=== PATIENT | male | born 1990 | race Caucasian/White ===

== ENCOUNTER → 2016-12-13 10:36 | Day surgery (SDC) | payer BC, MEDICARE, MEDICAID ==
[~2016-12-13 10:36] MED LIST: Buffered Lidocaine 1% SYR 3ML* 3 ML/SYR SYRINGE INTRADERM ONE; Dexamethasone TAB* 4 MG ONE; Dexamethasone TAB* 4 MG PO ONE; Famotidine IV* 10 MG/ML 2 ML (20 mg) IV ONE; Famotidine IV* 10 MG/ML 2 ML (20 mg) ONE; KETAMINE HCL* 50 MG/ML 10 ML VIAL ONE; Levalbuterol 0.63MG/3ML NEB INH ONE; Levalbuterol 1.25MG/0.5ML NEB ONE; Lidocaine 2% PF * 5 ML VIAL ONE; Midazolam* 1 MG/ML 10 ML VIAL (10 MG) ONE; PROCHLORPERAZINE INJ 5 MG/ML 2 ML VIAL IV PRN; Propofol* 10 MG/ML 20 ML BTL IV PUSH ONE; cefTRIAXone(*) 2 GM ADDV.VIAL IVPB ONE; fentaNYL* 50 MCG/ML 2 ML VIAL (100 MCG VIAL) IV PRN; fentaNYL* 50 MCG/ML 2 ML VIAL (100 MCG VIAL) ONE; oxyCODONE/Acetamin 5/325 MG* TAB PO PRN
[2016-12-13 16:18] VITALS: BP 163/67
--- NOTE | 2016-12-14 13:07 | OP ---
DATE OF OPERATION: 12/13/16 - SDS DATE OF : [birth year] - AGE: 26 years, Male. SURGEON: Jarocho Omalley MD ANESTHESIOLOGIST: Dr. Coppola. ANESTHESIA: Intravenous sedation. PRE-OP DIAGNOSIS: Left renal calculus. POST-OP DIAGNOSIS: Left renal calculus. OPERATIVE PROCEDURE: Cystoscopy, left stent removal. COMPLICATIONS: None. INDICATIONS: Arian Ackerman is a 26-year-old gentleman who is morbidly obese and had an obstructing calculus in the left proximal ureter, which had been manipulated into the left kidney at the time of stent insertion. He underwent laser fragmentation and stent change in [place] and is now being brought in for stent removal. CONDITION: Postoperative Condition: Stable. DESCRIPTION OF PROCEDURE: After induction of intravenous sedation, the patient was placed in dorsal lithotomy position. Sequential compression devices were in place and functioning. Initial cystoscopy revealed mild stricture at the meatus. The remainder of the urethra was unremarkable. The bladder was examined. The stent was seen exiting from the left orifice and was removed intact without difficulty. The bladder was emptied. The patient tolerated the procedure satisfactorily and was transferred back to the recovery area in stable condition. [id number]/CPS #: [id number] MTDD
== END | disposition home or self-care (01) ==
LOC: OR 10:36
PROVIDERS: ATTEND Urology
DX: N20.0 Calculus of kidney (principal); Z72.0 Tobacco use; E66.01 Morbid (severe) obesity due to excess calories
CPT/HCPCS: A9270-GY; J0696; J2250; J2704; J3010; J8540

== ENCOUNTER 2017-12-27 13:34 | Emergency (ER) | payer BC, MEDICARE, MEDICAID ==
[2017-12-27 13:56] VITALS: BP 129/74
--- NOTE | 2017-12-27 13:58 | UC ---
Back Pain HPI - HPI Summary HPI Summary: Pt presents with low back pain. 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 Yesterday he was sitting a stool and fell asleep - he woke up and felt himself falling and fell onto his left side and lower back. Did not hit his head. Denies numbness, tingling, dizziness, headache, or loss of bowel/bladder function. - History of Current Complaint Chief Complaint: UCBackPain Stated Complaint: BACK INJURY Time Seen by Provider: 12/27/17 13:57 Hx Obtained From: Patient Onset/Duration: Sudden Onset Timing: Constant Severity Initially: Moderate Severity Currently: Moderate Pain Intensity: 8 Pain Scale Used: 0-10 Numeric - Allergies/Home Medications Allergies/Adverse Reactions: Allergies Allergy/AdvReac Type Severity Reaction Status Date / Time No Known Allergies Allergy Verified 12/27/17 13:54 PMH/Surg Hx/FS Hx/Imm Hx Previously Healthy: Yes - Surgical History Surgical History: Yes Surgery Procedure, Year, and Place: [id number]. kidney stone removed in [place] - Family History Known Family History: Positive: Unknown - Social History Occupation: Employed Full-time Lives: With Family Alcohol Use: None Alcohol Amount: x3 Substance Use Type: None Smoking Status (MU): Light Every Day Tobacco Smoker Amount Used/How Often: 1/2 PPD Household Exposure Type: Cigarettes Review of Systems Constitutional: Negative Skin: Negative Respiratory: Negative Cardiovascular: Negative Gastrointestinal: Negative Genitourinary: Negative Neurovascular: Negative Musculoskeletal: Other: - LBP Neurological: Negative Psychological: Negative All Other Systems Reviewed And Are Negative: Yes Physical Exam Triage Information Reviewed: Yes Appearance: No Pain Distress, Obese Vital Signs: Initial Vital Signs Temp 98.4 F 12/27/17 13:49 Pulse 90 12/27/17 13:49 Resp 16 12/27/17 13:49 BP 129/74 12/27/17 13:49 Pulse Ox 93 12/27/17 13:49 Vital Signs Reviewed: Yes Neck: Positive: Supple, Nontender, No Lymphadenopathy Respiratory: Positive: Lungs clear, Normal breath sounds, No respiratory distress Cardiovascular: Positive: RRR, No Murmur, Pulses Normal Musculoskeletal: Positive: Strength Intact - B/L LEs, ROM Intact - B/L LEs and spine flexion, Other: - TTP over left lumbar paraspinal muscles. Positive SLR raise on left Neurological: Positive: Fatigued Psychological: Positive: Age Appropriate Behavior Skin: Negative: rashes, significant lesion(s) Back Pain Course/Dx - Course Course Of Treatment: Suspect low back strain vs spasm. Will try him with low back exercises, flexeril, and ibuprofen prn - Differential Dx/Diagnosis Provider Diagnoses: Low back pain Discharge - Discharge Plan Condition: Stable Disposition: HOME Prescriptions: Cyclobenzaprine TAB* [Flexeril 10 MG TAB*] 10 mg PO BEDTIME PRN #7 tab PRN Reason: Pain Ibuprofen TAB* [Motrin TAB* 800 MG] 800 mg PO Q6H PRN #40 tab PRN Reason: Pain Patient Education Materials: Lower Back Exercises (ED) Forms: *Work Release Referrals: Jose Juan Oh MD [Primary Care Provider] - Additional Instructions: If you develop a fever, shortness of breath, chest pain, new or worsening symptoms - please call your PCP or go to the ED.
== END 2017-12-27 14:17 | disposition home or self-care (01) ==
LOC: UCEAST 13:34
DX: M54.5 Low back pain (principal); Z87.442 Personal history of urinary calculi; F17.210 Nicotine dependence, cigarettes, uncomplicated
CPT/HCPCS: 99212; G0463

== ENCOUNTER 2018-03-15 11:42 | Inpatient (IN) | payer BC, MEDICAID ==
[2018-03-15 15:45] LABS: ABS Basophils 0.1 10^3/ul (0-0.2); ABS Eosinophils 0.2 10^3/ul (0-0.6); ABS Lymphocytes 1.4 10^3/ul (1.0-4.8); ABS Neutrophils 8.2 10^3/ul (1.5-7.7); ABS Nucleated RBC 0 10^3/ul; Eosinophil % 2.2 % (0-6); Hematocrit 47 % (42-52); Hemoglobin 15.1 g/dl (14.0-18.0); Lymphocyte % 13.2 % (25-47); Mean Corpuscular HGB Conc 32 g/dl (31-36); Mean Corpuscular Hemoglobin 27 pg (27-31); Mean Corpuscular Volume 84 fL (80-94); Nucleated Red Blood Cells % 0; Platelet Count 201 10^3/ul (150-450); Red Blood Count 5.56 10^6/ul (4.0-5.4); Red Cell Distribution Width 17 % (10.5-15); White Blood Count 10.9 10^3/ul (3.5-10.8)
--- NOTE | 2018-03-15 15:57 | RAD ---
HISTORY: Edema COMPARISONS: None VIEWS: 2: frontal portable view of the chest at 3:30 PM FINDINGS: LINES AND TUBES: None. CARDIOMEDIASTINAL SILHOUETTE: The cardiomediastinal silhouette is normal for portable technique. PLEURA: The costophrenic angles are sharp. No pleural abnormalities are noted. LUNG PARENCHYMA: There is prominence of the central pulmonary vasculature. ABDOMEN: The upper abdomen is clear. There is no subphrenic gas. BONES AND SOFT TISSUES: No bone or soft tissue abnormalities are noted. IMPRESSION: PULMONARY VASCULAR CONGESTION.
[2018-03-15 16:10] LABS: EGFR Non-African American 143.7 (>60)
--- NOTE | 2018-03-15 16:36 | RAD ---
INDICATION: Scrotal swelling COMPARISON: None TECHNIQUE: Duplex interrogation of the scrotum was performed. This is a mildly examination. FINDINGS: Testicles: The testicles are Normal in size and echogenicity. There is no evidence of testicular mass. There is symmetric flow on Doppler interrogation. There is no evidence of torsion.. The right testis measures 5.1 x 3.1 x 3.4 cm and the left 5.4 x 3.1 x 3.8 cm. There is symmetric flow on Doppler interrogation. Epididymides: There is no evidence of an epididymal mass. The epididymides are normal in size. There is symmetric flow on Doppler interrogation. The right epididymal head measures 1.4 x 0.7 cm and the left 1.5 x 2.2 cm. Hydroceles: None. Varicoceles: None. Other: There is diffuse scrotal wall thickening/edema. IMPRESSION: LIMITED EXAMINATION DUE TO BODY HABITUS. DIFFUSE SCROTAL EDEMA. NO TESTICULAR MASS OR TORSION
[2018-03-15 16:56] LABS: Urine Appearance Clear; Urine Blood Negative (Negative); Urine Color Yellow; Urine Ketones Negative (Negative); Urine Protein Negative (Negative); Urine Specific Gravity 1.025 (1.010-1.030); Urine Urobilinogen Negative (Negative)
[2018-03-15] MEDS ORDERED: Furosemide IV* 10 MG/ML VIAL (40 MG) IV SLOW PU ONE (17:06)
[2018-03-15] MEDS ORDERED: Furosemide IV* 10 MG/ML VIAL (40 MG) ONE ×2 (17:18→19:51)
--- NOTE | 2018-03-15 18:53 | ED ---
Garland Burnett Jennifer, scribed for Moe Kraus MD on 03/15/18 at 1611 . GI/ HPI - HPI Summary HPI Summary: The patient is a 27 year old male who presents with swollen scrotum for one month. The patient reports he has been unable to urinate in the toilet and his ball sack hangs down to his knees when he walks. He has been unable to sustain an erection for one year. He additionally states his legs have been swollen for one year. Patient denies trouble breathing. - History of Current Complaint Chief Complaint: EDUrogenitalProblems Time Seen by Provider: 03/15/18 13:55 Stated Complaint: TESTICULAR ISSUE Hx Obtained From: Patient Onset/Duration: Started Weeks Ago - 4 weeks Timing: Constant Severity: Mild Current Severity: None Pain Intensity: 0 Location of Pain: None Additional Locations for Males: Penis - cannot sustain erection for one year, Scrotum - edema Associated Signs and Symptoms: Positive: Other: - swollen ballsack, bilateral leg edema. NEG: troubel breathing Aggravating Factor(s): Nothing Alleviating Factor(s): Nothing - Allergy/Home Medications Allergies/Adverse Reactions: Allergies Allergy/AdvReac Type Severity Reaction Status Date / Time No Known Allergies Allergy Verified 03/15/18 11:47 Home Medications: Home Medications NK [No Home Medications Reported] 03/15/18 [History Confirmed 03/15/18] PMH/Surg Hx/FS Hx/Imm Hx Endocrine/Hematology History: Denies: Hx Diabetes Cardiovascular History: Denies: Hx Hypertension Respiratory History: Reports: Hx Sleep Apnea - doesn't use machine History: Reports: Hx Kidney Stones - removed in [place] Denies: Hx Dialysis, Hx Renal Disease Musculoskeletal History: Reports: Hx Tendonitis - RIGHT WRIST Denies: Hx Scoliosis Sensory History: Denies: Hx Contacts or Glasses, Hx Hearing Aid Opthamlomology History: Denies: Hx Contacts or Glasses Neurological History: Denies: Hx Headaches, Other Neuro Impairments/Disorders - Surgical History Surgery Procedure, Year, and Place: [id number]. kidney stone removed in [place] Hx Anesthesia Reactions: No Infectious Disease History: No Infectious Disease History: Denies: Traveled Outside the [place] in Last 30 Days - Family History Known Family History: Negative: Respiratory Disease - Social History Alcohol Use: None Alcohol Amount: x3 Substance Use Type: Reports: None Smoking Status (MU): Light Every Day Tobacco Smoker Amount Used/How Often: 1/2 PPD Review of Systems Negative: Fever, Chills Negative: Erythema Negative: Sore Throat Negative: Chest Pain Negative: Shortness Of Breath, Cough Negative: Abdominal Pain, Vomiting, Nausea Negative: dysuria, hematuria Positive: Edema - ballsack, legs. Negative: Myalgia Negative: Rash Neurological: Negative - Dizziness All Other Systems Reviewed And Are Negative: Yes Physical Exam - Summary Physical Exam Summary: Constitutional: Morbidly obese. Alert. (-) Distressed Skin: Warm, Dry HENT: Normocephalic; Atraumatic Eyes: Conjunctiva normal Neck: Musculoskeletal ROM normal neck. (-) JVD, (-) Stridor, (-) Tracheal deviation Cardio: Rhythm regular, rate normal, Heart sounds normal; Intact distal pulses; The pedal pulses are 2+ and symmetric. Radial pulses are 2+ and symmetric. (-) Murmur Pulmonary/Chest wall: Effort normal. (-) Respiratory distress, (-) Wheezes, (-) Rales Abd: Soft, (-) Tenderness, (-) Distension, (-) Guarding, (-) Rebound Musculoskeletal: 2+ pitting edema up to the level of his scrotum. No necrosis, no testicular tenderness, no crepitus. I do not suspect brendon's gangrene. Lymph: (-) Cervical adenopathy Neuro: Alert, Oriented x3 Psych: Mood and affect Normal Triage Information Reviewed: Yes Vital Signs On Initial Exam: Initial Vitals Temp Pulse Resp BP Pulse Ox 98.5 F 91 20 109/47 92 03/15/18 11:47 03/15/18 11:47 03/15/18 11:47 03/15/18 11:47 03/15/18 11:47 Vital Signs Reviewed: Yes Diagnostics - Vital Signs Vital Signs Temp Pulse Resp BP Pulse Ox 03/15/18 13:45 97.5 F 89 14 130/70 92 03/15/18 11:47 98.5 F 91 20 109/47 92 - Laboratory Result Diagrams: 03/15/18 15:36 03/15/18 15:36 Lab Statement: Any lab studies that have been ordered have been reviewed, and results considered in the medical decision making process. - Radiology CXR Xray Interpretation: Positive (See Comments) - PULMONARY VASCULAR CONGESTION. Dr. Kraus has reviewed this report. Radiology Interpretation Completed By: Radiologist - EKG 1559 Cardiac Rate: NL EKG Rhythm: Sinus Rhythm - 87 BPM EKG Interpretation: no STEMI - Additional Comments Diagnostic Additional Comments: Testicular US. Interpreted by a radiologist. IMPRESSION: LIMITED EXAMINATION DUE TO BODY HABITUS. DIFFUSE SCROTAL EDEMA. NO TESTICULAR MASS OR TORSION. Dr. Kraus has reviewed this report. GIGU Course/Dx - Course Course Of Treatment: The patient is a 27 year old male who presents with swollen scrotum for one month. Bloodwork was obtained. CXR, EKG obtained. US testicles obtained. The patient is diagnosed with Anasarca, Lower extremity edema, and Peripheral edema. The patient is admitted by Dr. Gomez for diuresis. - Diagnoses Provider Diagnoses: Anasarca, Lower extremity edema, Peripheral edema - Physician Notifications Discussed Care Of Patient With: Jarret Gomez Time Discussed With Above Provider: 17:21 Instructed by Provider To: Admit As Inpatient Discharge - Sign-Out/Discharge Documenting (check all that apply): Discharge/Admit/Transfer - Discharge Plan Condition: Good Disposition: ADMITTED TO [facility] Referrals: No Primary Care Phys,NOPCP [Primary Care Provider] - The documentation as recorded by the Garland howell Jennifer accurately reflects the service I personally performed and the decisions made by , Moe Kraus MD.
[2018-03-15] MEDS ORDERED: Furosemide IV* 10 MG/ML VIAL (40 MG) IV ONE (19:34)
[2018-03-15] MEDS ORDERED: Albuterol 2.5 MG/3 ML NEB.SOL* (0.083%) INH PRN (19:41)
[2018-03-15] MEDS ORDERED: CMCS: Melatonin (NF) 3 MG TAB PO PRN (19:50)
[2018-03-15] MEDS ORDERED: Acetaminophen TAB* 325 MG PO PRN (19:51)
--- NOTE | 2018-03-15 21:10 | RAD ---
INDICATION: Pain and swelling. COMPARISON: None TECHNIQUE: Duplex interrogation of the Lowerextremity was performed. FINDINGS: Deep veins: The common femoral, great saphenous, profunda femoris, proximal, mid, and distal deep femoral, popliteal, posterior tibial, and peroneal veins were interrogated. There is normal compressibility, augmentation, and phasic in the visualized deep venous structures. Those structures not visualized include the femoral veins at the adductor canal and the tibial veins. These vessels were not seen due to body habitus. Superficial veins: There are no findings of superficial thrombophlebitis. Popliteal fossa:There is no evidence of a popliteal cyst. Soft tissues:There is dependent edema. IMPRESSION: LIMITED EXAMINATION. NO EVIDENCE OF DVT OF THE OBSERVABLE VESSELS
[2018-03-16] MEDS: Heparin VIAL(*) 5000 UNITS/ML VIAL (FIVE THOUSAND) SUBCUT SCH ×4 (00:06→21:50)
[2018-03-16] MEDS: cefTRIAXone(*) 1 GM in NS 0.9% 50 ML* 50 ML IVPB SCH ×2 (01:57→01:58)
--- NOTE | 2018-03-16 03:53 | HP ---
AMENDED REPORT NOW INCLUDES COSIGNER DESIGNATION - ESIGNED BEFORE ADJUSTMENTS ADMISSION HISTORY AND PHYSICAL: DATE OF ADMISSION: 03/15/18 ATTENDING PHYSICIAN: Dr. Deborah Pace.* (DICTATED BY BREANA BEAR NP) PRIMARY CARE PHYSICIAN: [facility]. HISTORY OF PRESENT ILLNESS: This is a 27-year-old male patient who reports a history over the last 2 weeks of increasing edema. The patient states over the past couple of months he has had some lower extremity edema bilaterally. He did go see one of the providers at the [facility] at his mother's request. The patient was supposed to be sent for lab work a couple of weeks ago, however, he did not go get his lab work. Over the past couple of days, the patient noticed that the edema increased up into his scrotum and also into his abdomen, and appears to be some generalized anasarca and no scrotal edema. The patient states he is still able to urinate. He denies any burning sensation. He denies any fever, fatigue or chills. No shortness of breath. No chest pain. No cough. No arthralgias or myalgias. He does have a sensation of fullness in the lower extremities and only pain in the scrotum if he wears a tighter clothing, but otherwise no further constitutional complaints. Evaluation in the emergency department was completed with testicular ultrasound. Ultrasound does not show any testicular torsion, does not show any abscess or fluid collection. It does show some scrotal thickening and edema. PAST MEDICAL HISTORY: Super Morbid Obesity, Kidney stones, MARIO. HOME MEDICATIONS: None. PAST SURGICAL HISTORY: Lithotripsy of kidney stones. ALLERGIES: No known drug allergies. SOCIAL HISTORY: The patient denies any illicit drug use. He is a half-pack a day tobacco user. Recreational alcohol only about 3 times a week. His mother is his health care proxy. REVIEW OF SYSTEMS: 10 point review negative except as noted in HPI. PHYSICAL EXAMINATION GENERAL: The patient is awake and alert, family at bedside, in no acute distress. VITAL SIGNS: Currently, blood pressure 130/70, heart rate 89, respiratory rate 14, O2 saturation 92% on room air with the temperature of 97.5. HEENT: The patient is atraumatic, normocephalic. PERRLA with nonicteric sclerae. NECK: Supple, nontender. No JVD noted. No thyromegaly appreciated. LUNGS: Diminished throughout, although it is very difficult to auscultate his lung sounds secondary to his body habitus, but does not appear to have any rhonchi or rales. CARDIOVASCULAR: S1, S2 present. Rate and rhythm are regular. No murmurs, gallops or rubs. ABDOMEN: Largely obese, unable to palpate any of his abdominal structures. He does have positive bowel sounds. No significant amount of edema. : He does have an intense amount of scrotal swelling and edema. It does not appear to have any cellulitic component or erythema. EXTREMITIES: Also, edema of the lower extremities. He does have distal pulses intact and he is ambulatory. NEUROLOGIC: He is grossly intact with no focal deficits. PSYCHIATRIC: He is cooperative and appropriate. DIAGNOSTIC STUDIES/LAB DATA: WBC is 10.9, RBC is 5.56, hemoglobin 15.5, hematocrit 47, platelets 201. Sodium 142, potassium 4.2, chloride 103, CO2 35, BUN 9, creatinine 0.66, GFR is 142.7, glucose 89, lactic acid 0.8, calcium 8.4. Bilirubin 0.60, AST 15, ALT 16, alk phos 52. Troponin is negative at 0.00. CRP is mildly elevated at 21.16. BNP is 28. Total protein 6.8, albumin 3.5, globulin 3.3, lipase 10, BNP is 28. Urinalysis shows no acute infective process. IMPRESSION: This is a 27-year-old male patient with the complaint of scrotal edema and also inability to have an erection for 1 year now. Has not had a urological workup up to this point. Also appears to have some generalized anasarca and some pulmonary vascular congestion on his chest x-ray. PLAN/RECOMMENDATIONS: The patient has been admitted to observation service. ADMISSION DIAGNOSES: 1. Anasarca: Etiology unclear, likely OHS with MARIO. Continue aggressive diuresis with lasix. and monitor I&O. Low sodium diet. 2. Scrotal Edema: We do not have Urology on board this evening. I feel that may be warranted to have a discussion with Urology tomorrow given the intense amount of swelling that he has. He is voiding on his own but my concern is that Urology should really make some recommendations here regarding additional care given the intense amount of the edema that he is exhibiting. In the meantime, he has gotten Lasix 40 mg, another 40 mg in the ER and another 40 mg in the morning. We will monitor his output and see if his swelling starts to improve. 3. Pulmonary Congestion: Pulse ox has been low with some tachypnea. Likely fluid from his anasarca. Should improve with lasix. continue to monitor respiratory status. May repeat chest xray. 4. Obesity Hypoventilation Syndrome with Concomitant MARIO: CO2 is slightly elevated with pulse ox around 90%. Patient needs sleep study as an outpatient. If no improvement with diuresis, will check overnight pulse oximetry. 5. Leukocytosis: Etiology unclear, check urine, may be early cellulitis. Will trial Ceftriaxone and await recommendations from Dr. [place]. The patient had testicular ultrasound earlier; however, with the increasing edema in his bilateral lower extremities, I feel it is warranted to do bilateral ultrasound of the lower extremities to rule out DVT as well. This will all be evaluated in the morning and again discussed with Urology if the patient needs further workup or can be discharged with outpatient followup. The rest of the patient's course will be determined by further diagnostics, labs and any other input from other providers as warranted during this admission. BREANA BEAR NP [id number]/CPS #: [id number] MTDD
[2018-03-16 06:33] LABS: EGFR Non-African American 146.3 (>60)
[2018-03-16 06:35] LABS: ABS Basophils 0.1 10^3/ul (0-0.2); ABS Eosinophils 0.2 10^3/ul (0-0.6); ABS Lymphocytes 1.5 10^3/ul (1.0-4.8); ABS Monocytes 0.8 10^3/ul (0-0.8); ABS Neutrophils 10.2 10^3/ul (1.5-7.7); ABS Nucleated RBC 0 10^3/ul; Eosinophil % 1.6 % (0-6); Hematocrit 47 % (42-52); Hemoglobin 15.5 g/dl (14.0-18.0); Lymphocyte % 11.7 % (25-47); Mean Corpuscular HGB Conc 33 g/dl (31-36); Mean Corpuscular Hemoglobin 27 pg (27-31); Mean Corpuscular Volume 84 fL (80-94); Mean Platelet Volume 7.4 um3 (7.4-10.4); Nucleated Red Blood Cells % 0.2; Platelet Count 200 10^3/ul (150-450); Red Blood Count 5.66 10^6/ul (4.0-5.4); Red Cell Distribution Width 18 % (10.5-15); White Blood Count 12.8 10^3/ul (3.5-10.8)
[2018-03-16] MEDS: Furosemide IV* 10 MG/ML VIAL (40 MG) IV SCH (08:22)
[2018-03-16] MEDS: Clindamycin 600 MG IVPREMIX(* 600 MG/50 ML SDV IV SCH ×2 (09:36→17:51)
--- NOTE | 2018-03-16 14:24 | RAD ---
CLINICAL HISTORY: Anasarca COMPARISON: May 28, 2018 TECHNIQUE: Multiple contiguous axial CT scans were obtained of the abdomen and pelvis, without intravenous contrast enhancement. Coronal and sagittal multiplanar reformations are submitted for review. Oral contrast was not administered. FINDINGS: The study is limited by the lack of intravenous contrast. This limits evaluation of the solid organs and vasculature. This study is also technically limited secondary patient body habitus. LUNG BASES: The lung bases are clear. LIVER: The liver is normal in shape, size, contour, and attenuation. BILE DUCTS: There is no intrahepatic or extrahepatic biliary dilatation. GALLBLADDER: The gallbladder is normal, without pericholecystic inflammatory change. PANCREAS: The pancreas is normal, without mass or ductal dilatation. SPLEEN: Normal in size and appearance. UPPER GI TRACT: Evaluation of the gastrointestinal tract is limited by incomplete gastric distention. The upper GI tract is unremarkable. SMALL BOWEL AND MESENTERY: The small bowel is normal in contour, course, and caliber. There is no obstruction or dilatation. COLON: The colon is normal in contour, course, caliber. There is no pericolonic inflammatory change. ADRENALS: Normal bilaterally. KIDNEYS: The kidneys are normal in shape, size, contour, and axis. There is no hydronephrosis or nephrolithiasis. BLADDER: The bladder is smooth in contour. PELVIC ORGANS: The prostate gland is normal. The seminal vesicles are symmetric. There is scrotal wall edema. AORTA: The aorta is normal. IVC: Unremarkable LYMPH NODES: There is no lymphadenopathy by size criteria. ABDOMINAL WALL: Evaluation is limited secondary to body habitus. BONES AND SOFT TISSUES: Unremarkable OTHER: None IMPRESSION: 1. LIMITED STUDY. 2. SCROTAL WALL EDEMA. 3. NO ACUTE NONCONTRAST CT PATHOLOGY OF THE VISUALIZED ABDOMEN AND PELVIS
--- NOTE | 2018-03-16 15:06 | PN ---
Subjective Date of Service: 03/16/18 Interval History: Patient seen and examined. Ambulatory, no complaints. Denies chest pain, no acute SOB. Patient denies dyspnea although he appears to have increased WOB with ambulation. Denies fever or chills. Edema with slight improvement. Objective Active Medications: Acetaminophen (Tylenol Tab*) 650 mg PO Q6H PRN PRN Reason: FEVER/HEADACHE Albuterol (Ventolin 2.5 Mg/3 Ml Neb.Nel*) 2.5 mg INH Q4H PRN PRN Reason: SOB/WHEEZING Furosemide (Lasix Iv*) 40 mg IV DAILY [facility] Last Admin: 03/16/18 08:22 Dose: 40 mg Heparin Sodium (Porcine) (Heparin Vial(*)) 5,000 units SUBCUT Q8HR [facility] Last Admin: 03/16/18 13:08 Dose: Not Given Clindamycin HCl/Dextrose (Cleocin 600 Mg Ivpremix(*) Sdv) 600 mg in 50 mls @ 100 mls/hr IV Q8H [facility] Last Admin: 03/16/18 09:36 Dose: 100 mls/hr Melatonin (Melatonin (Nf)) 3 mg PO BEDTIME PRN PRN Reason: INSOMNIA Vital Signs - 8 hr 03/16/18 03/16/18 03/16/18 07:05 08:12 12:14 Temperature 98.1 F 98.4 F Pulse Rate 89 92 Respiratory 26 18 18 Rate Blood Pressure 172/103 137/70 (mmHg) O2 Sat by Pulse 93 90 Oximetry 03/16/18 13:42 Temperature Pulse Rate 92 Respiratory 18 Rate Blood Pressure (mmHg) O2 Sat by Pulse 92 Oximetry Oxygen Devices in Use Now: None Appearance: Alert, NAD Eyes: No Scleral Icterus, PERRLA Ears/Nose/Mouth/Throat: NL Teeth, Lips, Gums, Mucous Membranes Moist Neck: NL Appearance and Movements; NL JVP, Trachea Midline Respiratory: Symmetrical Chest Expansion and Respiratory Effort, Clear to Auscultation, - - difficult to hear lung sounds at bases 2/2 body habitus Cardiovascular: NL Sounds; No Murmurs; No JVD, RRR Abdominal: NL Sounds; No Tenderness; No Distention - obese Lymphatic: No Cervical Adenopathy Extremities: - - moderate to severe bilateraly LE and scrotal edema Skin: - - right anterior lower lyle with scab, no exudate Neurological: Alert and Oriented x 3 Nutrition: Taking PO's Result Diagrams: 03/16/18 05:59 03/16/18 05:59 Diagnostic Imaging: Patient Name: NUZHAT HAYDEN Medical Record#: [id number] Ordering Physician: Moe Kraus MD Acct.#: [id number] : 1990 Age: 27 Sex: M Location: EMERGENCY DEPARTMENT Exam Date: 03/15/181522 ADM Status: DEP ER Order Information: CHEST AP PORTABLE Accession Number: [id number] CPT: 25329 HISTORY: Edema COMPARISONS: None VIEWS: 2: frontal portable view of the chest at 3:30 PM FINDINGS: LINES AND TUBES: None. CARDIOMEDIASTINAL SILHOUETTE: The cardiomediastinal silhouette is normal for portable technique. PLEURA: The costophrenic angles are sharp. No pleural abnormalities are noted. LUNG PARENCHYMA: There is prominence of the central pulmonary vasculature. ABDOMEN: The upper abdomen is clear. There is no subphrenic gas. BONES AND SOFT TISSUES: No bone or soft tissue abnormalities are noted. IMPRESSION: PULMONARY VASCULAR CONGESTION. <Electronically signed by Matt Mora MD in OV> 03/15/181552 Dictated By: Matt Mora MD Dictated Date/Time: 03/15/181552 Transcribed Date/Time: 03/15/181552 Copy to: TESTICULAR US: Patient Name: NUZHAT HAYDEN Medical Record#: [id number] Ordering Physician: Moe Kraus MD Acct.#: [id number] : 1990 Age: 27 Sex: M Location: EMERGENCY DEPARTMENT Exam Date: 03/15/181522 ADM Status: DEP ER Order Information: US TESTICULAR Accession Number: [id number] CPT: 67965 INDICATION: Scrotal swelling COMPARISON: None TECHNIQUE: Duplex interrogation of the scrotum was performed. This is a mildly examination. FINDINGS: Testicles: The testicles are Normal in size and echogenicity. There is no evidence of testicular mass. There is symmetric flow on Doppler interrogation. There is no evidence of torsion.. The right testis measures 5.1 x 3.1 x 3.4 cm and the left 5.4 x 3.1 x 3.8 cm. There is symmetric flow on Doppler interrogation. Epididymides: There is no evidence of an epididymal mass. The epididymides are normal in size. There is symmetric flow on Doppler interrogation. The right epididymal head measures 1.4 x 0.7 cm and the left 1.5 x 2.2 cm. Hydroceles: None. Varicoceles: None. Other: There is diffuse scrotal wall thickening/edema. IMPRESSION: LIMITED EXAMINATION DUE TO BODY HABITUS. DIFFUSE SCROTAL EDEMA. NO TESTICULAR MASS OR TORSION <Electronically signed by Ry Groves MD in OV> 03/15/18 1632 Dictated By: Ry Groves MD Dictated Date/Time: 03/15/18 1632 Transcribed Date/Time: 03/15/18 1631 Copy to: US DOPPLER BILAT LE: Patient Name: NUZHAT HAYDEN Medical Record#: [id number] Ordering Physician: Jessica Gustafson NP Acct.#: [id number] : 1990 Age: 27 Sex: M Location: EMERGENCY DEPARTMENT Exam Date: 03/15/182013 ADM Status: REG ER Order Information: VL LOWER EXT VEINS BILATERAL Accession Number: [id number] CPT: 74744 INDICATION: Pain and swelling. COMPARISON: None TECHNIQUE: Duplex interrogation of the Lower extremity was performed. FINDINGS: Deep veins: The common femoral, great saphenous, profunda femoris, proximal, mid , and distal deep femoral, popliteal, posterior tibial, and peroneal veins were interrogated. There is normal compressibility, augmentation, and phasic in the visualized deep venous structures. Those structures not visualized include the femoral veins at the adductor canal and the tibial veins. These vessels were not seen due to body habitus. Superficial veins: There are no findings of superficial thrombophlebitis. Popliteal fossa:There is no evidence of a popliteal cyst. Soft tissues:There is dependent edema. IMPRESSION: LIMITED EXAMINATION. NO EVIDENCE OF DVT OF THE OBSERVABLE VESSELS <Electronically signed by Ry Groves MD in OV> 03/15/182105 Dictated By: Ry Groves MD Dictated Date/Time: 03/15/182105 Transcribed Date/Time: 03/15/182048 Copy to: CT ABDOMEN AND PELVIS: Patient Name: NUZHAT HAYDEN Medical Record#: [id number] Ordering Physician: Jessica Gustafson NP Acct.#: [id number] : 1990 Age: 27 Sex: M Location: [address] [place] [address] MEDICAL/TELEMETRY Exam Date: 03/16/18 1331 ADM Status: ADM Stephan Order Information: CT ABD/PEL W/O Accession Number: [id number] CPT: 32649 CLINICAL HISTORY: Anasarca COMPARISON: May 28, 2018 TECHNIQUE: Multiple contiguous axial CT scans were obtained of the abdomen and pelvis, without intravenous contrast enhancement. Coronal and sagittal multiplanar reformations are submitted for review. Oral contrast was not administered. FINDINGS: The study is limited by the lack of intravenous contrast. This limits evaluation of the solid organs and vasculature. This study is also technically limited secondary patient body habitus. LUNG BASES: The lung bases are clear. LIVER: The liver is normal in shape, size, contour, and attenuation. BILE DUCTS: There is no intrahepatic or extrahepatic biliary dilatation. GALLBLADDER: The gallbladder is normal, without pericholecystic inflammatory change. PANCREAS: The pancreas is normal, without mass or ductal dilatation. SPLEEN: Normal in size and appearance. UPPER GI TRACT: Evaluation of the gastrointestinal tract is limited by incomplete gastric distention. The upper GI tract is unremarkable. SMALL BOWEL AND MESENTERY: The small bowel is normal in contour, course, and caliber. There is no obstruction or dilatation. COLON: The colon is normal in contour, course, caliber. There is no pericolonic inflammatory change. ADRENALS: Normal bilaterally. KIDNEYS: The kidneys are normal in shape, size, contour, and axis. There is no hydronephrosis or nephrolithiasis. BLADDER: The bladder is smooth in contour. PELVIC ORGANS: The prostate gland is normal. The seminal vesicles are symmetric. There is scrotal wall edema. AORTA: The aorta is normal. IVC: Unremarkable LYMPH NODES: There is no lymphadenopathy by size criteria. ABDOMINAL WALL: Evaluation is limited secondary to body habitus. BONES AND SOFT TISSUES: Unremarkable OTHER: None IMPRESSION: 1. LIMITED STUDY. 2. SCROTAL WALL EDEMA. 3. NO ACUTE NONCONTRAST CT PATHOLOGY OF THE VISUALIZED ABDOMEN AND PELVIS <Electronically signed by Matt Mora MD in OV> 03/16/18 1421 1 of 2 Assess/Plan/Problems-Billing Assessment: This is a 27 year old male that presented to ER with complaint of bilateral LE edema and scrotal edema that has been increasing for several weeks. - Patient Problems (1) Anasarca Code(s): R60.1 - GENERALIZED EDEMA SNOMED Code(s): 013977625 Comment: - Etiology unclear - Renal and liver function WNL - Likley 2/2 obesity hypoventilation syndrome - continue to diurese with lasix - Strict I&Os - CT as above, does not appear to be any obstructive masses, likely all r/t pressure/girth and OHS (2) Scrotal edema Code(s): N50.89 - OTHER SPECIFIED DISORDERS OF THE MALE GENITAL ORGANS SNOMED Code(s): 81107787 Comment: - 2/2 above - Consult with Dr. Birmingham who recommends CT scan abd/pelvis, elevation with a towel and diruresis (3) Leukocytosis Code(s): D72.829 - ELEVATED WHITE BLOOD CELL COUNT, UNSPECIFIED SNOMED Code(s) : 642969581 Comment: - UTI vx early cellulitis? - Remains afebrile but met 2 of 3 SIRS criteria (tachypnea and increased WBCs) - Had ceftriaxone last night, will trial clindamycin, monitor WBCs (4) Morbid obesity with BMI of 70 and over, adult Code(s): E66.01 - MORBID (SEVERE) OBESITY DUE TO EXCESS CALORIES; Z68.45 - BODY MASS INDEX (BMI) 70 OR GREATER, ADULT SNOMED Code(s): 609836840 Comment: - Discussed bariatric surgery with patient and will make referral - Nutrition consultation (5) Obesity hypoventilation syndrome Code(s): E66.2 - MORBID (SEVERE) OBESITY WITH ALVEOLAR HYPOVENTILATION SNOMED Code(s): 245778950 Comment: - Pulse ox dipped to 90% will awake and does appear to have increased work of breathing - Patient states hx of sleep apnea, not on CPAP - Stressed importance of follow up - Will get overnight pulse ox and make referral for pulmonology at discharge (6) DVT prophylaxis Code(s): PDV3418 - SNOMED Code(s): 303097635 Comment: - HSQ (7) Full code status Code(s): Z78.9 - OTHER SPECIFIED HEALTH STATUS SNOMED Code(s): 165076795 Status and Disposition: Remain inpatient.
--- NOTE | 2018-03-16 18:13 | CONS ---
CONSULTATION NOTE: DATE OF CONSULT: 03/16/18 LOCATION: Room #453. I was asked by Ms. Gustafson from the hospitalist service to see this 27-year-old white male because of scrotal wall edema. Mr. Ackerman is a morbidly obese white male who was previously seen in our office about 2 years ago because of renal calculus disease. At that time, he had an 8 mm ureteral calculus and required a ureteroscopy with good result. He has not had any recurrent renal calculi. For the last several months, he has noted progressive edema of his lower extremities and of the scrotum. This was asymptomatic, not associated with any pain or changes in his voiding. He was admitted yesterday because of increasing edema of the lower extremities and also was noted to have increasing edema in the scrotum. He did not report any scrotal pain or any voiding symptoms. He denies any past history of epididymitis or of any voiding symptoms. This condition has not been associated with any changes in his voiding, decreased urinary stream, hesitancy or hematuria. No urinary tract infections. No flank pain. No renal symptoms. Patient is presently being worked up for anasarca, and has been started on a diuretic. So far, there is no diagnosis for the cause of the anasarca. The patient is morbidly obese weighing more than 600 pounds. A consultation was obtained to rule out cellulitis associated with the scrotal wall edema. A scrotal ultrasound was obtained yesterday and it showed normal testes and diffuse thickening of the scrotal wall. The study was technically limited due to the scrotal wall edema, but no gross abscesses, collections, or gas noted in the scrotal wall. On examination today, he is a very morbidly obese male weighing more than 600 pounds. He has diffuse tense edema of both lower extremities. There are no signs of cellulitis in his lower extremities. There is also diffuse edema of the scrotal wall. There is no evidence of scrotal wall cellulitis or scrotal wall collections. Both testes feel normal without any testicular masses and no tenderness, no hydroceles, the epididymis feel normal bilaterally. No inguinal hernias. He is uncircumcised. There is a mild edema of the foreskin. The foreskin can be easily retracted and the urethral meatus looks normal. No penile lesions noted. Impression: Diffuse scrotal wall edema, without associated cellulitis, which is consistent with the edema of the rest of his lower body. The condition is secondary to the anasarca rather than to any specific pathology. Plan: Recommend scrotal elevation and avoiding abrasion of the scrotal wall to avoid any port entry for cellulitis. The treatment of his condition is the same treatment as for the anasarca for which he is being worked for. I recommended obtaining a CT of the abdomen and pelvis to rule out retroperitoneal pathology or lymphadenopathy that can explain his diffuse lower body edema. I will see him in follow up as needed. Thank you [id number]/[facility] #: [id number] KOKI
[2018-03-16] MEDS ORDERED: Furosemide IV* 10 MG/ML VIAL (40 MG) IV SLOW PU SCH (20:00)
[2018-03-17] MEDS: Clindamycin 600 MG IVPREMIX(* 600 MG/50 ML SDV IV SCH ×2 (01:32→09:26)
[2018-03-17] MEDS: Heparin VIAL(*) 5000 UNITS/ML VIAL (FIVE THOUSAND) SUBCUT SCH (05:50)
[2018-03-17] MEDS: Furosemide IV* 10 MG/ML VIAL (40 MG) IV SCH (09:26)
[2018-03-17 10:24] VITALS: BP 130/69
[2018-03-17] MEDS ORDERED: Furosemide IV* 10 MG/ML VIAL (40 MG) IV SLOW PU SCH (20:00)
--- NOTE | 2018-03-19 12:06 | DS ---
AMENDED REPORT NOW INCLUDES COSIGNER DESIGNATION - ESIGNED BEFORE ADJUSTMENTS CC: Dr. Birmingham * DISCHARGE SUMMARY: DATE OF ADMISSION: 03/15/18 DATE OF DISCHARGE: 03/17/18 PATIENT OF: Dr. Deborah Pace. ATTENDING HOSPITALIST: Dr. Deborah Pace.* (DICTATED BYVERONIQUE [facility]) PRIMARY CARE PHYSICIAN: [facility]. CONSULTATIONS: Gil Birmingham MD., from Urology. PROCEDURES: None. CHIEF COMPLAINT: Lower extremity swelling. HISTORY OF PRESENT ILLNESS: Arian is a pleasant 27-year-old male who is super morbidly obese, with BMI of 75, who presented to the emergency room with over 2-week history of increasing swelling and edema to his bilateral lower extremity. The patient states that over the past couple months he had had some lower extremity edema; however, it has gotten progressively worse over the past 2 weeks. He was supposed to be sent for a laboratory workup a couple of weeks ago; however, he decided to ignore it, but continued to have increased swelling that now spread to his scrotal area with increased swelling and redness as well. The patient denies any scrotal pain, trouble with urination, dysuria, fever, chills or fatigue. He was evaluated in the emergency room and had a testicular ultrasound that showed no evidence of any testicular torsion or abscess or any fluid collection. It did show some scrotal thickening and edema consistent with the physical exam. Given his morbid obesity and the diagnosis of anasarca, the patient was admitted under hospitalist service for further evaluation. HOSPITAL COURSE: The patient was admitted under hospitalist services and was put on a restricted sodium-free diet. He continued to do well, receiving doses of Lasix while he has been hospitalized, and he continued to lose fluids on a daily basis. His inpatient outputs were monitored closely and the patient was advised to limit his sodium in diet upon discharge. A formal consult by Dr. Birmingham was performed regarding the new findings of testicular swelling and he recommended obtaining a CT scan that was obtained and revealed the same thickened and edematous scrotum, with no evidence of abscess collection or testicular torsion. The patient continued to improve on IV antibiotics and diuretics and on discharge morning he had no significant pain or swelling to the scrotum. He continued to ambulate with no difficulty. I had a long discussion with the patient regarding the necessity for a bariatric surgery given his young age and comorbidities associated with his super morbid obesity. The patient informs me that he has been a candidate at the bariatric center; however, he failed to maintain his appointments and eventually did not want to proceed with any bariatric workup. The patient was encouraged to follow up with [facility] and he will continue clindamycin as an outpatient and followup with primary care physician regarding chronic lower extremity edema. DISCHARGE MEDICATIONS: His discharge medications include: 1. Lasix 40 mg p.o. b.i.d. 2. Clindamycin 600 mg p.o. t.i.d. for 10 days. VERONIQUE [facility] [id number]/[facility] #: [id number] MTDD
== END 2018-03-17 14:15 | disposition home or self-care (01) | DRG 861 ==
LOC: ED 11:42 → MEDTELE 19:30 → OBSVTOIN 03-16 16:16
PROVIDERS: ADMIT Internal Medicine; ATTEND Student in an Organized Health Care Education/Training Program
DX: R60.1 Generalized edema (principal); E66.2 Morbid (severe) obesity with alveolar hypoventilation; Z68.45 Body mass index [BMI] 70 or greater, adult; N50.89 Other specified disorders of the male genital organs; D72.829 Elevated white blood cell count, unspecified; G47.33 Obstructive sleep apnea (adult) (pediatric); F17.210 Nicotine dependence, cigarettes, uncomplicated; R09.89 Other specified symptoms and signs involving the circulatory and respiratory systems; Z87.442 Personal history of urinary calculi
CPT/HCPCS: 36415; 71045; 74176; 76870; 80053; 81003; 83605; 83690; 83880; 84443; 84484; 85025; 86140; 93005; 93970; 94762; 99285; 99406; J0696; J1644; J1940

== ENCOUNTER 2018-10-20 03:05 | Inpatient (IN) | payer BC, MEDICAID ==
[2018-10-20] MEDS ORDERED: Albuterol/Ipratropium NEB.SOL* Albuterol 2.5 MG/Ipratropium 0.5 MG 3 ML ONE (03:24)
[2018-10-20] MEDS ORDERED: Albuterol/Ipratropium NEB.SOL* Albuterol 2.5 MG/Ipratropium 0.5 MG 3 ML INH ONE (03:25)
[2018-10-20] MEDS ORDERED: methylPREDNISolone 125 MG* 2 ML VIAL IV ONE (03:25)
--- NOTE | 2018-10-20 03:44 | ED ---
Complex/Multi-Sys Presentation - HPI Summary HPI Summary: A 28 y/o male accompanied by a friend presents to the ED c/o BLE swelling and discoloration reaching 2/10 in severity. Additionally c/o SOB. In the ED room, the patient has a pulse of 107 BPM and O2 saturation of 88%. As per triage, "Pt c/o BLE swelling and discoloration for sometime (8 months). States he was seen at his PCP on Sunday d/t scrotal edema. States he was informed to come to ED on Sunday but he did not want to come". According to the patient, he is at the [facility] because his scrotum is abnormally large and he need antibiotics. He denies any pain anywhere on his body, including his scrotum. Patient denies any COPD or emphysema. PMHx of sleep aphasia. SHx of smoker. Patient does not take O2 at home. - History Of Current Complaint Chief Complaint: EDGeneral Time Seen by Provider: 10/20/18 03:17 Hx Obtained From: Patient Onset/Duration: Lasting Weeks, Still Present Timing: Constant Location: Negative Character: Unable To Describe Aggravating Factor(s): NOTHING Alleviating Factor(s): NOTHING Associated Signs And Symptoms: Positive: Other - BLE SWELLING - Allergies/Home Medications Allergies/Adverse Reactions: Allergies Allergy/AdvReac Type Severity Reaction Status Date / Time No Known Allergies Allergy Verified 10/20/18 03:13 Home Medications: Home Medications Fluconazole 150 mg PO DAILY 10/20/18 [History Confirmed 10/20/18] Fluoxetine HCl [Prozac] 20 mg PO DAILY 10/20/18 [History Confirmed 10/20/18] Sulfamethox/Trimethoprim DS* [Bactrim DS 800/160 TAB*] 1 tab PO BID 10/20/18 [ History Confirmed 10/20/18] PMH/Surg Hx/FS Hx/Imm Hx Endocrine/Hematology History: Denies: Hx Diabetes Cardiovascular History: Denies: Hx Hypertension Respiratory History: Reports: Hx Sleep Apnea - doesn't use machine History: Reports: Hx Kidney Stones - removed in [place] Denies: Hx Dialysis, Hx Renal Disease Musculoskeletal History: Reports: Hx Tendonitis - RIGHT WRIST Denies: Hx Scoliosis Sensory History: Denies: Hx Contacts or Glasses, Hx Hearing Aid Opthamlomology History: Denies: Hx Contacts or Glasses Neurological History: Denies: Hx Headaches, Other Neuro Impairments/Disorders - Surgical History Surgery Procedure, Year, and Place: [id number]. kidney stone removed with stent placement in [place] Hx Anesthesia Reactions: No Infectious Disease History: No Infectious Disease History: Denies: Traveled Outside the [place] in Last 30 Days - Family History Known Family History: Negative: Respiratory Disease - Social History Alcohol Use: None Alcohol Amount: x3 Substance Use Type: Reports: None Smoking Status (MU): Light Every Day Tobacco Smoker Amount Used/How Often: 1/2 PPD Review of Systems Negative: Fever Positive: Shortness Of Breath Positive: Other - POSITIVE: BLE SWELLING AND DISCOLORATION All Other Systems Reviewed And Are Negative: Yes Physical Exam - Summary Physical Exam Summary: Appearance: morbidly obese, Skin: warm, dry, reflects adequate perfusion Head/face: normal Eyes: EOMI, KAYDEN ENT: normal Neck: supple, non-tender Respiratory: bilateral wheezes Cardiovascular: RRR, pulses symmetrical Abdomen: non-tender, soft Musculoskeletal: strength/ROM intact, edema of legs and scrotal edema Neuro: A&Ox3 Triage Information Reviewed: Yes Vital Signs On Initial Exam: Initial Vitals Temp Pulse Resp BP Pulse Ox 97.6 F 100 24 138/78 77 10/20/18 03:08 10/20/18 03:08 10/20/18 03:08 10/20/18 03:08 10/20/18 03:08 Vital Signs Reviewed: Yes Diagnostics - Vital Signs Vital Signs Temp Pulse Resp BP Pulse Ox 10/20/18 03:23 98 167/80 93 10/20/18 03:08 97.6 F 100 24 138/78 77 - Laboratory Result Diagrams: 10/20/18 03:43 10/20/18 03:43 Lab Statement: Any lab studies that have been ordered have been reviewed, and results considered in the medical decision making process. - Radiology CXR Radiology Interpretation Completed By: ED Physician Summary of Radiographic Findings: NO ACTIVE INFILTRATE. PENDING OFFICIAL REPORT. - EKG 0337 Cardiac Rate: Tachycardia - 96 BPM EKG Rhythm: Sinus Tachycardia - [address] Segment: Non-Specific Complex Multi-Symp Course/Dx Course Of Treatment: A 28 y/o male accompanied by a friend presents to the ED c/ o BLE swelling and discoloration reaching 2/10 in severity. Additionally c/o SOB. In the ED room, the patient has a pulse of 107 BPM and O2 saturation of 88% . According to the patient, he is at the [facility] because his scrotum is abnormally large and he need antibiotics. He denies any pain anywhere on his body, including his scrotum. Physical examination findings significant for edema of legs and scrotal edema, bilateral wheezes, and morbidly obese patient. A CXR revealed no active infiltrate. An EKG revealed sinus tachycardia at a rate of 96 BPM, non-specific ST. Hematology, Chemistry, and blood gas screens were done. No significant laboratory abnormalities were found. In the ED course , the patient received, Albuterol and Solu-Medrol. Patient care was discussed with hospitalist, Dr. Deborah Pace, who accepts patient for admission. Patient will be admitted with a diagnosis of hypoxia, obesity, and hypoventilation syndrome. Patient is agreeable with this plan. - Diagnoses Differential Diagnoses/HQI/PQRI: Sepsis, Other - hypoxia/pneumonia Provider Diagnoses: Hypoxia, Hypoventilation syndrome, Obesity - Physician Notifications Discussed Care Of Patient With: Deborah Pace Time Discussed With Above Provider: 04:24 Instructed by Provider To: Other - ACCEPTS PATIENT FOR ADMISSION. Discharge - Sign-Out/Discharge Documenting (check all that apply): Patient Departure - ADMIT, Sign-Out Patient - RAGINI Signing out patient TO: Deborah Pace Receiving patient FROM: Major Bower - Discharge Plan Condition: Stable Disposition: ADMITTED TO [facility] Referrals: Catracho Silva DO [Primary Care Provider] - - Billing Disposition and Condition Condition: STABLE Disposition: Admitted to [facility] - Attestation Statements Document Initiated by Ollie: Yes Documenting Scribe: Noé Aviles Provider For Whom Ollie is Documenting (Include Credential): Major Bower MD Scribe Attestation: Noé Burnett scribed for Major Bower MD on 10/20/18 at 0454. Scribe Documentation Reviewed: Yes Provider Attestation: The documentation as recorded by the Noé howell accurately reflects the service I personally performed and the decisions made by , Major Bower MD Status of Scribe Document: Viewed
[2018-10-20 03:58] LABS: Activated Partial Thrombo Time 28.8 seconds (26.0-36.3); INR 1.3 (0.77-1.02)
[2018-10-20 04:12] LABS: ABS Basophils 0.1 10^3/ul (0-0.2); ABS Eosinophils 0.3 10^3/ul (0-0.6); ABS Lymphocytes 1.5 10^3/ul (1.0-4.8); ABS Monocytes 1.1 10^3/ul (0-0.8); ABS Neutrophils 9.4 10^3/ul (1.5-7.7); ABS Nucleated RBC 0 10^3/ul; Eosinophil % 2.5 %; Hematocrit 48 % (42-52); Hemoglobin 14.9 g/dl (14.0-18.0); Lymphocyte % 12.2 %; Mean Corpuscular HGB Conc 31 g/dl (31-36); Mean Corpuscular Hemoglobin 26 pg (27-31); Mean Corpuscular Volume 83 fL (80-94); Mean Platelet Volume 7.5 fL (7.4-10.4); Nucleated Red Blood Cells % 0.2; Platelet Count 203 10^3/ul (150-450); Red Cell Distribution Width 19 % (10.5-15); White Blood Count 12.4 10^3/ul (3.5-10.8)
[2018-10-20 04:20] LABS: Albumin 3.2 g/dL (3.2-5.2); Albumin/Globulin Ratio 1.1 (1-3); BUN/Creatinine Ratio 15.1 (8-20); Calcium 8.5 mg/dL (8.6-10.3); Globulin 2.9 g/dL (2-4); Potassium 4.2 mmol/L (3.5-5.0); Total Bilirubin 0.7 mg/dL (0.2-1.0); Total Protein 6.1 g/dL (6.4-8.9)
[2018-10-20] MEDS ORDERED: Acetaminophen TAB* 325 MG PO PRN (05:40)
[2018-10-20] MEDS ORDERED: Furosemide IV* 10 MG/ML VIAL (40 MG) IV ONE (05:43)
[2018-10-20 06:08] LABS: C Reactive Protein 51.4 mg/L (<8.01)
[2018-10-20] MEDS ORDERED: Furosemide IV* 10 MG/ML VIAL (40 MG) IV SLOW PU SCH (08:00)
[2018-10-20] MEDS ORDERED: Fluconazole 150 MG (NF) 150 MG TAB PO SCH (09:00)
[2018-10-20] MEDS ORDERED: Lidocaine 2% JELLY* 6 ML JELLY TOPICAL ONE ×2 (10:30→11:59)
[2018-10-20] MEDS: Heparin VIAL(*) 5000 UNITS/ML VIAL (FIVE THOUSAND) SUBCUT SCH ×3 (10:46→21:36)
[2018-10-20] MEDS: Sulfamethox/Trimethoprim DS 800/160* TAB PO SCH ×2 (10:59→20:26)
[2018-10-20] MEDS: FLUoxetine CAP* 20 MG PO SCH (10:59)
--- NOTE | 2018-10-20 11:36 | HP ---
CC: Dr. Silva * HISTORY AND PHYSICAL: DATE OF ADMISSION: 10/20/18 PRIMARY CARE PROVIDER: Dr. Silva CHIEF COMPLAINT: Shortness of breath and swelling. HISTORY OF PRESENT ILLNESS: Ben Ackerman is a 28-year-old super morbidly obese male, with a BMI of over 90, who came into the hospital after he had been ill for a couple of months. He stated that he had been gaining weight and his scrotum had been extensively swollen. Just a few days ago he was prescribed Bactrim for cellulitis of his scrotum and bilateral lower extremities. He also complains of shortness of breath. He has CPAP at home, but he cannot use it due to "the pressure being too high." Here, during the evaluation, when patient was placed on oxygen via mask at 5 L, he frequently desaturates when he falls asleep. He appears to have severe obstructive sleep apnea, but he likely is going to have problems with compliance with CPAP. I suspect the patient has right-sided heart failure from his super morbid obesity. His ABG shows a mixed hypoxemic and hypercapnic respiratory failure. He is going to be admitted to the hospital and further treated. PAST MEDICAL HISTORY: 1. Super morbid obesity. 2. History of nephrolithiasis. 3. Obstructive sleep apnea. 4. Patient stated that his genetic testing was positive for celiac disease, although he tolerates gluten without any problems. MEDICATIONS: Include: 1. Lasix 40 mg twice a day. 2. Bactrim DS 1 tablet b.i.d. Please note that the Bactrim was just started 2 days ago. 3. Prozac 20 mg daily. 4. Fluconazole 150 mg daily. ALLERGIES: No known drug allergies. FAMILY HISTORY: Positive for obesity. SOCIAL HISTORY: Patient denies any tobacco, alcohol or drug use. He used to work at [employer]; currently he is on disability since June 2018. Patient's mom, who was present in the room, stated that patient lives alone, but most of the time now he is just "lying on the floor." Mom noted that he has had problems with taking care himself and his apartment is in disarray. Patient himself complains of shortness of breath and coughing. REVIEW OF SYSTEMS: The remaining 12 systems were reviewed with the patient and apart from the ones mentioned here and the ones mentioned in history of present illness were negative. PHYSICAL EXAMINATION GENERAL: The patient is a pleasant 28-year-old male with a BMI of above 90. Patient is in no acute distress. He is alert and oriented x3. While on oxygen , he frequently "dozes off" and his oxygen saturations dropped to the 80s when he was in the ED. VITAL SIGNS: Blood pressure of 121/89, heart rate of 95 and regular, respiratory rate 25, oxygen saturation 93% on 5 L of oxygen via mask, temperature 97.6. HEENT: Head atraumatic and normocephalic. Eyes: Pupils are equal and reactive to light and accommodation. Oropharynx is clear. Mucosa moist. NECK: Supple. No JVD. No bruits bilaterally. RESPIRATORY: Distant breath sounds due to morbid obesity, but otherwise clear. CARDIOVASCULAR: Regular rate and rhythm. No murmur. ABDOMEN: Very protuberant, soft, nontender. Bowel sounds present in all 4 quadrants. EXTREMITIES: There is generalized lymphedema due to massive obesity noted. Pulses +2 bilaterally. There is no clubbing, no cyanosis. Patient appears to be having generalized erythema, especially in bilateral hands and forearms and bilateral lower extremities. His scrotum is massively swollen due to what appears to be lymphedema, also with erythema. The lower part of his abdomen is also erythematous. Having said that his skin is not with increased warm to touch. At this point, the erythema does not appear to be related to cellulitis. NEUROLOGIC: Speech is clear. Cranial nerves II through XII are grossly intact. Motor strength is 5/5 bilaterally. DIAGNOSTIC STUDIES/LABORATORY DATA: White blood cell count of 12.4, hemoglobin of 14.9, hematocrit of 48, and platelets of 203. ABG shows pH of 7.35, pCO2 of 69, pO2 of 71, bicarb of 32.2. Sodium was 140, potassium 4.2, chloride 101, carbon dioxide 35, BUN 11, creatinine 0.73. Liver function tests unremarkable. Brain natriuretic peptide was 212. Patient's x-ray was read by myself. It is of very poor quality due to patient' s extreme obesity. There is no gross infiltrate visualized. Patient's EKG shows low amplitude QRS. Sinus rhythm with a heart rate of 96 beats per minute and right axis deviation. ASSESSMENT AND PLAN: 1. A combination of hypoxemia and hypercapnic respiratory failure, likely due to congestive heart failure and right-sided heart failure due to super morbid obesity. Patient is going to be admitted to the hospital and diuresed with intravenous Lasix. He was on 40 of Lasix p.o. and I am going to start him on 40 of Lasix IV. His weights are going to be obtained daily as well as we will monitor patient's intake and output. Transesophageal echocardiogram is going to be obtained and I suspect that the yield is going to be low due to patient's morbid obesity and likely low quality of the echocardiogram. 2. Due to patient's severe morbid obesity, patient has obstructive sleep apnea and he is going to be placed on CPAP whenever he is asleep. He will likely need it also when he is awake, most of the time. 3. For his depression, Prozac is going to be continued. 4. In regards to patient's history of cellulitis, at this point I am not sure if patient has cellulitis. His skin has the appearance of "the pink puffer." At this point, I will obtain C-reactive protein. Nevertheless, his skin condition does not appear to necessitate intravenous antibiotics. I will continue patient's Bactrim. He started it just 2 days ago and may be his skin is looking better now because his antibiotic has started working. 5. Patient is going to be placed on DVT prophylaxis with heparin subcutaneously. 6. The patient's code status is full and his surrogate is his mother. TIME SPENT: Approximately 65 minutes were spent on history and physical taken from this patient, more than half of that time was spent on [id number] with the patient during the interview and physical exam. [id number]/[facility] #: [id number] KOKI
[2018-10-20] MEDS: Albuterol 2.5 MG/3 ML NEB.SOL* (0.083%) INH PRN ×2 (13:42→21:11)
[2018-10-20] MEDS: Furosemide IV* 10 MG/ML VIAL (40 MG) IV SLOW PU SCH (18:14)
[2018-10-21 00:49] LABS: ABS Basophils 0.1 10^3/ul (0-0.2); ABS Eosinophils 0 10^3/ul (0-0.6); ABS Lymphocytes 0.8 10^3/ul (1.0-4.8); ABS Neutrophils 10.3 10^3/ul (1.5-7.7); ABS Nucleated RBC 0 10^3/ul; Eosinophil % 0.2 %; Hematocrit 48 % (42-52); Hemoglobin 14.6 g/dl (14.0-18.0); Lymphocyte % 6.8 %; Mean Corpuscular HGB Conc 31 g/dl (31-36); Mean Corpuscular Hemoglobin 25 pg (27-31); Mean Corpuscular Volume 82 fL (80-94); Nucleated Red Blood Cells % 0.1; Platelet Count 189 10^3/ul (150-450); Red Blood Count 5.83 10^6/ul (4.00-5.40); Red Cell Distribution Width 19 % (10.5-15); White Blood Count 12.3 10^3/ul (3.5-10.8)
[2018-10-21 00:52] LABS: BUN/Creatinine Ratio 17.9 (8-20); Calcium 8.6 mg/dL (8.6-10.3); EGFR Non-African American 140.2 (>60); Potassium 4.4 mmol/L (3.5-5.0)
[2018-10-21] MEDS ORDERED: Al Hydrox/Mg Hydrox/Simet LIQ* 30 ML UDC PO PRN (02:40)
[2018-10-21] MEDS ORDERED: Pantoprazole IV* 40 MG IV STA (02:41)
--- NOTE | 2018-10-21 02:45 | PN ---
Hospitalist Progress Note Date of Service: 10/21/18 called to bedside due to profound hypoxia ---> his pulse ox went down to 60s while sleeping---> pt was put on bipap ( has bipap vs cpap at home but none compliant) when this senior writer arrives he was awake and is aao time three. pt was 700 lb and is high risk of any acute cardio vs pul complication ---> pt was placed on tele and will be transfer to icu for close monitering since this is the first time he is on bipap for this visit. stat chest x ray ( ap ) showed cardiomegaly pul congestion his ekg showed anterior leads q wave change compared to old ekg in 02/2018 and 10/20/2018 at 3 am. oxygenation has been better after bipap routine lab including trop ordered. trop came back neg. bnp still pending. pt has been on solumedrol/ bactrim/ iv lasix bid vital 121/64 22 afebrile sat is 90s on bipap general in mild to mod distess heart s1 ns2 rrr lung equal chest expansion fine wheezing heard on b/l lung morgan abd + bs soft nt neuro aao times three follows commands was talking through his bipap a/p 1 acute hypoxia failure due to profound blake - bipap support - place on tele - will need to go to icu after bipap ( non compliant at home ) 2 prob diastolic heart failure - tele with elder -echo ordered on 10/20 -continue his lasix iv bid 3 acute on chronic respiratory failure - continue solumerol - continue iv lasix - oxygen support total critical care time is 35 min for transfer and f/u
[2018-10-21] MEDS ORDERED: LORazepam INJ* 2 MG/ML 1 ML VIAL ONE (04:58)
[2018-10-21] MEDS ORDERED: Succinylcholine* 20 MG/ML 10 ML VIAL ONE (04:59)
[2018-10-21] MEDS ORDERED: Etomidate* 2 MG/ML 20 ML VIAL (40 MG) ONE ×2 (05:02→05:04)
[2018-10-21] MEDS: Propofol* 200 ML ONE ×2 (05:05→06:06)
[2018-10-21] MEDS ORDERED: Morphine VIAL* 10 MG/ML 1 ML VIAL ONE (05:19)
[2018-10-21] MEDS ORDERED: Midazolam* 1 MG/ML 10 ML VIAL (10 MG) ONE (05:21)
[2018-10-21] MEDS ORDERED: Furosemide IV* 10 MG/ML VIAL (40 MG) ONE (05:29)
[2018-10-21] MEDS ORDERED: Rocuronium* 10 MG/ML VIAL IVPB ONE ×2 (06:00)
[2018-10-21] MEDS: Heparin VIAL(*) 5000 UNITS/ML VIAL (FIVE THOUSAND) SUBCUT SCH (06:10)
--- NOTE | 2018-10-21 06:16 | ED ---
Progress - Progress Note Progress Note: Time: 0 500 Was called by hospitalist/ICU staff to go to ICU and intubated the patient because of respiratory distress. Patient was already in BiPAP, his repeat ABG are worsening on BiPAP. Upon arrival patient seems to be agitated. Patient is morbidly obese, very distant decreased breath sounds. Patient was medicated with etomidate 40 mg, 100 mg of succinylcholine for RSI. Using Glidescope epiglottis and vocal cords indirectly visualized. Using ET tube 7.5, I did visualize passing the ET tube through the vocal cords. Lip line at 24 cm. Capnography did show good color change for the right placement. Chest x-ray postintubation did show ET tube at the level of the clavicle. Patient has cardiomegaly with bilateral interstitial infiltrate consistent with CHF versus ARDS. Patient O2 sat was low at the beginning after intubation in the upper 70s. Patient given Lasix 40 mg IV, patient's respiratory rate was 12, 100% FiO2, Beep of 10. Patient was on pressure ventilation rather than volume ventilation, Patient O2 sat climbed up gradually. Critical care time spent with the patient is 40 minutes. Patient's management assigned to Dr. Guthrie. Hospitalist and using Course/Dx - Course Course Of Treatment: A 28 y/o male accompanied by a friend presents to the ED c/ o BLE swelling and discoloration reaching 2/10 in severity. Additionally c/o SOB. In the ED room, the patient has a pulse of 107 BPM and O2 saturation of 88% . According to the patient, he is at the [facility] ED because his scrotum is abnormally large and he need antibiotics. He denies any pain anywhere on his body, including his scrotum. Physical examination findings significant for edema of legs and scrotal edema, bilateral wheezes, and morbidly obese patient. A CXR revealed no active infiltrate. An EKG revealed sinus tachycardia at a rate of 96 BPM, non-specific ST. Hematology, Chemistry, and blood gas screens were done. No significant laboratory abnormalities were found. In the ED course , the patient received, Albuterol and Solu-Medrol. Patient care was discussed with hospitalist, Dr. Deborah Pace, who accepts patient for admission. Patient will be admitted with a diagnosis of hypoxia, obesity, and hypoventilation syndrome. Patient is agreeable with this plan. - Diagnoses Provider Diagnoses: Hypoxia, Hypoventilation syndrome, Obesity - Provider Notifications Time Discussed With Above Provider: 04:24 Instructed by Provider To: Other - ACCEPTS PATIENT FOR ADMISSION. Discharge - Sign-Out/Discharge Documenting (check all that apply): Patient Departure - Discharge Plan Condition: Stable Disposition: ADMITTED TO [facility] - Billing Disposition and Condition Condition: STABLE Disposition: Admitted to [facility] - Attestation Statements Document Initiated by Scribe: No Scribe Documentation Reviewed: No
[2018-10-21] MEDS ORDERED: Propofol* 100 ML ONE (06:47)
[2018-10-21] MEDS: Propofol* 100 ML IV SCH ×12 (06:50→23:33)
[2018-10-21] MEDS ORDERED: Furosemide IV* 10 MG/ML VIAL (40 MG) IV ONE (07:31)
[2018-10-21] MEDS: Sulfamethox/Trimethoprim DS 800/160* TAB PO SCH (08:30)
[2018-10-21] MEDS: FLUoxetine CAP* 20 MG PO SCH (08:30)
[2018-10-21] MEDS: Furosemide IV* 10 MG/ML VIAL (40 MG) IV SLOW PU SCH ×2 (08:34→18:35)
[2018-10-21] MEDS ORDERED: Perflutren Lipid Microsphere* 3 ML VIAL ONE ×2 (08:54→11:08)
[2018-10-21] MEDS: fentaNYL* 50 MCG/ML 2 ML VIAL (100 MCG VIAL) IV PRN ×2 (09:00→10:40)
--- NOTE | 2018-10-21 09:18 | PN ---
Hospitalist Progress Note Date of Service: 10/21/18 pt was suddenly agitated pull out his bipap and was desat to 80s again. he wanted to get up to urinate and was very confused. pt was on very high setting of bipap with 100 oxygen ---> stat abg 7.23 with pco2 96 he subsequently got intubated with oxygen sat was around mid 80s despite of multiple sedation ( versed + morphine besides maintainance drip ) got a lasix from er dr despite he has been on lasix 40 mg iv bid unable to have a sig urinate outpt spoke with gu overnight will call ir in am to do so ---> will transfer to [facility]
[2018-10-21] MEDS: Enoxaparin(*) 60 MG/0.6 ML SYR SUBCUT SCH ×2 (11:08→22:06)
--- NOTE | 2018-10-21 12:06 | ECHO ---
Patient: JIAN HAYDEN [facility] Rec#: [id number] : 1990 Date: 10/21/2018 Age: 28y Height: 183 cm / 72.0 in Weight: 265 kg / 584.1 lbs Sex: M BSA: 3.36 Room#: [facility] Admit Date#: 10/20/2018 Type: Inpatient Referring: Deborah Pace MD Reading: Mario Zavala MD Die Cast Technician: Kamini Greco [facility] CC: Catracho Silva MD Transthoracic Echocardiogram Indication: Respiratory Failure//Edema BP: 115/57 HR: 73 Rhythm: NSR Findings History: Morbid obesity, BLE edema,SOB,MARIO,smoker. Currently sedated,intubated and mechanically ventilated. Technical Comments: The study is technically limited due to patient body habitus. Completed at 1210. The study is technically limited due to the patient's smoking history. Definity used to enhance images. The study was technically limited due to the patient's inability to lay in the left lateral decubitus position. The study is technically limited due to patient being intubated and on a ventilator. Left Ventricle: The left ventricular chamber size is mildly dilated. Moderate to severe concentric left ventricular hypertrophy is observed. There is normal left ventricular systolic function. The estimated ejection fraction is 55-60%. The assessment of diastolic function is non-diagnostic. Left Atrium: The left atrium is moderately dilated. Right Ventricle: The right ventricle is not well visualized. The right ventricle wall thickness is mildly increased.7 mm. The right ventricular global systolic function is moderately reduced. Right Atrium: The right atrium is not well visualized. Aortic Valve: The aortic valve is trileaflet. There is no evidence of aortic valve thickening. There is no evidence of aortic regurgitation. There is no evidence of aortic stenosis. Mitral Valve: The mitral valve structure is not well visualized. Tricuspid Valve: The tricuspid valve structure is not well visualized. Pulmonic Valve: The pulmonic valve structure is not well visualized. Pericardium: A pericardial fat pad is visualized. Aorta: There is no dilatation of the ascending aorta. The aortic arch is not well visualized. There is moderate dilatation of the aortic root. Pulmonary Artery: The main pulmonary artery is not well visualized. Venous: The venous system is not well visualized. Contrast: Definity was used to optimize study. Intravenous contrast was used to enhance endocardial border definition. A total of 8 ml utilized. Summary: There was not any prior study for comparison. Conclusions The study is technically limited due to patient body habitus and compromises the assessments of LV function and valve function. Moderate to severe concentric left ventricular hypertrophy is observed. The estimated ejection fraction is 55-60%. The left atrium is moderately dilated. The right ventricular global systolic function is moderately reduced. The right ventricle wall thickness is mildly increased There is moderate dilatation of the aortic root. Measurements Name Value Normal Range RVIDd (AP) 2D 4.5 cm (0.9 - 2.6) IVSd (2D) 2.2 cm (0.6 - 1) LVPWd (2D) 1.6 cm (0.6 - 1) LVIDd (2D) 5.9 cm (3.6 - 5.4) LVIDs (2D) 3.7 cm - LV FS (2D) 37 % (25 - 45) Aortic Annulus 3 cm (1.4 - 2.6) Ao root diameter (2D) 4.6 cm (2.1 - 3.5) Ascending Ao 3.4 cm (2.1 - 3.4) LA dimension (AP) 2D 3.9 cm (2.3 - 3.8) Name Value Normal Range MV E-wave Vmax 1 m/sec - MV deceleration time 334 msec - MV A-wave Vmax 0.5 m/sec - MV E:A ratio 1.8 ratio - Name Value Normal Range AV Vmax 0.9 m/sec - AV VTI 20.8 cm - AV peak gradient 3 mmHg - AV mean gradient 2 mmHg - LVOT Vmax 0.6 m/sec - LVOT VTI 14.8 cm - LVOT peak gradient 2 mmHg - LVOT mean gradient 1 mmHg - Name Value Normal Range PV Vmax 0.8 m/sec -
[2018-10-21] MEDS: Chlorhexidine MOUTHWASH 0.12%* 15 ML UDC TOPICAL SCH ×4 (12:28→22:05)
[2018-10-21] MEDS ORDERED: Famotidine IV * 20 MG in NS 0.9% 100 ML* 100 ML IVPB SCH (14:00)
--- NOTE | 2018-10-21 14:03 | PN ---
Date of Service: 10/21/18 - [facility] note Critical Care Services: Pt seen and examined at bedside multiple times during the day and plan of care discussed with ICU team in interdisciplinary rounds. Overnight events noted Pt was admitted 10/20 for Scrotal cellulits and wt gain. Pt is morbidly obese with severe MARIO dx in 2010- AHI 99%, O2 soila-75%. He was prescribed CPAP of 12 cm H2O. He has not been compliant with CPAP due to discomfort with pressure settings. He has not followed in sleep clinic since 2011. He has been having issues with scrotal cellulitis recently. he has been also gaining more weight due to dietary non-compliance. He also smokes daily. He was transferred to ICU last night after being hypoxic on floor. He was placed on BiPAP. He continued to deteriorate, became agitated and was intubated this am for severe hypercapnic and hypoxic resp failure. Given unsuccessful attempt at Jimenez placement, suprapubic catheter was placed by IR this am. There was concern with oxygenating him this am that was improved with high PEEP strategy. He was able to be titrated off high FiO2 and PEEP, currently on 80%, PEEP of 10. Vital Signs: Temp Pulse Resp BP SpO2 FiO2 98.1 F 75 14 121/69 93 100 10/21/18 13:01 10/21/18 13:01 10/21/18 11:00 10/21/18 13:00 10/21/18 13:01 10/21 08:26 Physical Exam: Gen: Pt in NAD HEENT: PERRLA, ETT in place Lungs: Clear to auscultation, decreased at bases Cardiac: S1, S2+, regular Abdomen: Obese, BS+ Extremities: Trace edema Neuro: No focal deficits, sedated Fluid Balance (Past 24 Hours): H=4752 O= 4185 Net -2492 Intake & Output 10/19/18 10/20/18 10/21/18 10/22/18 06:59 06:59 06:59 06:59 Intake Total 1693 Output Total 1000 4185 1700 Balance -1000 -2492 -1700 Weight 700 lb 583 lb 5.49 oz Intake: Medicated IV 143 CC - Propofol/Diprivan 143 Oral 1550 Output: Urine 1000 4185 Jimenez 1700 Other: Estimated Void Large # Voids 1 Labs: Laboratory Results - last 24 hr 10/21/18 10/21/18 10/21/18 00:26 00:26 00:26 WBC 12.3 H RBC 5.83 H Hgb 14.6 Hct 48 MCV 82 MCH 25 L MCHC 31 RDW 19 H Plt Count 189 MPV 7.0 L Neut % (Auto) 84.2 Lymph % (Auto) 6.8 Faulk % (Auto) 8.3 Eos % (Auto) 0.2 Baso % (Auto) 0.5 Absolute Neuts (auto) 10.3 H Absolute Lymphs (auto) 0.8 L Absolute Monos (auto) 1.0 H Absolute Eos (auto) 0 Absolute Basos (auto) 0.1 Absolute Nucleated RBC 0 Nucleated RBC % 0.1 Patient Temperature ABG pH ABG pH (Temp Correct) ABG pCO2 ABG pCO2 (Temp Corrct ABG pO2 ABG pO2 (Temp Correct ABG HCO3 ABG O2 Saturation ABG Base Excess Respiration Rate O2 Delivery Device Ventilator Type Vent Mode FiO2 Inspiratory Time PEEP Pressure Support Pressure Control EPAP IPAP BiPAP Sodium 139 Potassium 4.4 Chloride 98 L Carbon Dioxide 38 H Anion Gap 3 BUN 12 Creatinine 0.67 Est GFR ( Amer) 169.7 Est GFR (Non-Af Amer) 140.2 BUN/Creatinine Ratio 17.9 Glucose 114 H Calcium 8.6 Magnesium 2.0 Troponin I 0.01 B-Natriuretic Peptide 211 H 10/21/18 10/21/18 10/21/18 02:58 04:33 05:50 WBC RBC Hgb Hct MCV MCH MCHC RDW Plt Count MPV Neut % (Auto) Lymph % (Auto) Faulk % (Auto) Eos % (Auto) Baso % (Auto) Absolute Neuts (auto) Absolute Lymphs (auto) Absolute Monos (auto) Absolute Eos (auto) Absolute Basos (auto) Absolute Nucleated RBC Nucleated RBC % Patient Temperature Not Reportable ABG pH 7.23 L ABG pH (Temp Correct) Not Reportable ABG pCO2 96 H* ABG pCO2 (Temp Corrct Not Reportable ABG pO2 155 H ABG pO2 (Temp Correct Not Reportable ABG HCO3 31.7 H ABG O2 Saturation 99.5 H ABG Base Excess 8.7 H Respiration Rate Not Reportable O2 Delivery Device bipap Ventilator Type Not Reportable Vent Mode Not Reportable FiO2 70 Inspiratory Time Not Reportable PEEP Not Reportable Pressure Support Not Reportable Pressure Control Not Reportable EPAP 16 IPAP 22 BiPAP s/t Sodium Potassium Chloride Carbon Dioxide Anion Gap BUN Creatinine Est GFR ( Amer) Est GFR (Non-Af Amer) BUN/Creatinine Ratio Glucose Calcium Magnesium Troponin I 0.01 0.01 B-Natriuretic Peptide 10/21/18 10/21/18 05:50 08:25 WBC RBC Hgb Hct MCV MCH MCHC RDW Plt Count MPV Neut % (Auto) Lymph % (Auto) Faulk % (Auto) Eos % (Auto) Baso % (Auto) Absolute Neuts (auto) Absolute Lymphs (auto) Absolute Monos (auto) Absolute Eos (auto) Absolute Basos (auto) Absolute Nucleated RBC Nucleated RBC % Patient Temperature Not Reportable ABG pH 7.36 ABG pH (Temp Correct) Not Reportable ABG pCO2 75 H* ABG pCO2 (Temp Corrct Not Reportable ABG pO2 62 L ABG pO2 (Temp Correct Not Reportable ABG HCO3 35.2 H ABG O2 Saturation 92.5 L ABG Base Excess 13.4 H Respiration Rate 16 O2 Delivery Device vent Ventilator Type Not Reportable Vent Mode pcv+ FiO2 100 Inspiratory Time 1.2 PEEP 12 Pressure Support Not Reportable Pressure Control 25 EPAP Not Reportable IPAP Not Reportable BiPAP Not Reportable Sodium Potassium Chloride Carbon Dioxide Anion Gap BUN Creatinine Est GFR ( Amer) Est GFR (Non-Af Amer) BUN/Creatinine Ratio Glucose Calcium Magnesium Troponin I B-Natriuretic Peptide 302 H Studies: CXR: ETT in place, OGT below diaphrahm, Mass-like opacification in rt hilum Nutrition: NPO for now Impression: A/P: 28 y o super morbidly obese male with h/o Severe MARIO possible OHS, recently being treated for Scrotal cellulitis a/w increased scrotal swelling and was transferred to ICU for acute hypoxic and hypercapnic resp failure 1. Acute hypoxic and acute on chronic hypercapnic resp failure 2. CHF with fluid overload 3. AMS 4. Scrotal cellulitis 5. Leucocytosis 6. Super morbid obesity 7. Urinary retention s/p suprapubic catheter placement Plan: 1. Neuro: Pt intubated for AMS from hypercapnia and SOA ARCHITECT narcosis. Pt sedated with Propofol. Received paralytic to assist with ventilation and oxygenation. Will maintain RASS at 2-3. Keep ead of bed elevated 2. Resp: Intubated for acute hypercapnic and hypoxic resp failure. Pt had hypoxia requiring high FiO2 and PEEP post intubation. Less likely to be PE as he is hemodynamically significant and given alternate explanation of MARIO/OHS and fluid overload. Will titrate FiO2 as tolerated. No evidence of auto PEEP at this time. Peak pressures are not elevated. Vent bundle ordered. Will continue with conventional settings at this time. c/w nebs prn given smoking history. CXR with suggestion of density in rt hilum, will need CT chest when stable for further evaluation. 3. CVS: Is hemodynamically stable. Received 80mg IV Lasix total. On Lovenox for DVT prophylaxis. Unable to get CTA at this time, not sure if pt can fit into CT scanner, had CT abdomen recently. Suspect diastolic dysfunction and Rt heart dysfunction. Will avoid fluid overload, will also avoid high PEEP if oxygenation permits. Will order ECHO, unsure if would be helpful. No acute changes on EKG 4. ID: Scrotal cellulitis and significant swelling, no evidence of LE cellulitis. Was on Bactrim as out pt. Will change to Zosyn. Lactate was normal on admission. 5. GI: NPO for now as was intubated this am. Will start feeds when more stable. GI ppx 6. Genitourinary: Pt with significant scrotal and penile swelling, urology unable to pass Jimenez, noted to be retaining 1200 ml urine, s/p suprapubic catheter placement by IR with drainage of urine. Creatinine is normal. No electrolyte abnormalities. 7. Musculoskeltal: Frequent positioning, monitoring for pressure ulcers. 8. Endo: Bl sugars slightly elevated, will monitor 9. Haem: Leucocytosis from cellulitis 10. Psychosocial: Pt is intubated. Mother updated at bedside Full code IV access: PICC line 10/21/18 Suprapubic catheter 10/21/18 Critical Care Time: 65 min
[2018-10-21] MEDS: Famotidine IV* 10 MG/ML 2 ML (20 mg) IV SCH (14:50)
[2018-10-21] MEDS: Piperacillin/Tazobac ADVAN(*) 3.375 GM in NS 0.9% 100 ML* 100 ML IVPB SCH ×2 (14:51→22:05)
[2018-10-21] MEDS ORDERED: Vancomycin per Pharmacy* NOTE FOLLOW UP PRN (15:21)
[2018-10-21] MEDS ORDERED: Vancomycin(*) 2,000 MG in NS 0.9% 500 ML* 500 ML IVPB ONE (16:00)
--- NOTE | 2018-10-21 16:35 | PN ---
Progress Note - Progress Note Date of Service: 10/21/18 - Progress note Note: Dong better with resp status, sedation vacation attempted and pt tolerated well. Hemodynamically stable Scrotum significantly swollen and tense, warm to touch, no crepitus Will order CT abd/pelvis to evaluate for necrotizing fascitis Renal function stable Received Lasix 80 today, will f./u BMP in am Discussed with surgery Dr Rosa, will consult officially after reviewing CT pelvis
[2018-10-21] MEDS ORDERED: Iodixanol* (CONTRAST) 320 MG/ML 100 ML SDV IV ONE (17:50)
[2018-10-21 20:10] LABS: ABS Basophils 0.1 10^3/ul (0-0.2); ABS Eosinophils 0.3 10^3/ul (0-0.6); ABS Monocytes 0.8 10^3/ul (0-0.8); ABS Nucleated RBC 0 10^3/ul; Eosinophil % 3.3 %; Hematocrit 49 % (42-52); Lymphocyte % 9.6 %; Mean Corpuscular HGB Conc 31 g/dl (31-36); Mean Corpuscular Hemoglobin 25 pg (27-31); Mean Corpuscular Volume 82 fL (80-94); Mean Platelet Volume 7.2 fL (7.4-10.4); Nucleated Red Blood Cells % 0.1; Platelet Count 196 10^3/ul (150-450); Red Blood Count 5.97 10^6/ul (4.00-5.40); Red Cell Distribution Width 18 % (10.5-15); White Blood Count 10.1 10^3/ul (3.5-10.8)
[2018-10-21 20:26] LABS: Calcium 8.5 mg/dL (8.6-10.3); EGFR Non-African American 123.1 (>60); Potassium 4.3 mmol/L (3.5-5.0)
[2018-10-21 21:35] LABS: INR 1.2 (0.77-1.02)
[2018-10-22] MEDS: Propofol* 100 ML IV SCH ×14 (00:50→18:37)
[2018-10-22] MEDS: fentaNYL* 50 MCG/ML 2 ML VIAL (100 MCG VIAL) IV PRN ×4 (02:28→17:30)
[2018-10-22] MEDS: Chlorhexidine MOUTHWASH 0.12%* 15 ML UDC TOPICAL SCH ×5 (03:12→17:43)
[2018-10-22 05:04] LABS: ABS Basophils 0 10^3/ul (0-0.2); ABS Eosinophils 0.3 10^3/ul (0-0.6); ABS Lymphocytes 0.9 10^3/ul (1.0-4.8); ABS Monocytes 0.9 10^3/ul (0-0.8); ABS Nucleated RBC 0 10^3/ul; Eosinophil % 2.9 %; Hematocrit 51 % (42-52); Hemoglobin 15.7 g/dl (14.0-18.0); Lymphocyte % 8.7 %; Mean Corpuscular HGB Conc 31 g/dl (31-36); Mean Corpuscular Hemoglobin 25 pg (27-31); Mean Corpuscular Volume 82 fL (80-94); Mean Platelet Volume 6.9 fL (7.4-10.4); Nucleated Red Blood Cells % 0.1; Platelet Count 177 10^3/ul (150-450); Red Blood Count 6.18 10^6/ul (4.00-5.40); Red Cell Distribution Width 19 % (10.5-15); White Blood Count 10.2 10^3/ul (3.5-10.8)
[2018-10-22 05:28] LABS: Albumin 3.1 g/dL (3.2-5.2); Albumin/Globulin Ratio 1.1 (1-3); BUN/Creatinine Ratio 18.5 (8-20); Calcium 8.6 mg/dL (8.6-10.3); EGFR Non-African American 145.2 (>60); Globulin 2.9 g/dL (2-4); Potassium 3.9 mmol/L (3.5-5.0); Total Bilirubin 0.9 mg/dL (0.2-1.0)
[2018-10-22] MEDS: Piperacillin/Tazobac ADVAN(*) 3.375 GM in NS 0.9% 100 ML* 100 ML IVPB SCH ×2 (05:40→14:00)
[2018-10-22] MEDS ORDERED: Vancomycin(*) 2,000 MG in NS 0.9% 500 ML* 500 ML IVPB SCH (06:00)
[2018-10-22] MEDS: Albuterol 2.5 MG/3 ML NEB.SOL* (0.083%) INH PRN ×3 (08:38→13:30)
--- NOTE | 2018-10-22 08:54 | PN ---
Hospitalist Progress Note Date of Service: 10/22/18 got called reg his abg at 2300 no adjustment of his vent ---> repeat abg ordered at 6 am ---> respiratory did it at 535 am ---> abg showed very sig hypoxia and oxygen was increased to 100 percent ---> this justowriter operator was not called reg abnormal abg result and vent setting change---> found this out at 7 05 am. stat chest x ray ordered for am and called store mgr service to report this
[2018-10-22] MEDS: FLUoxetine CAP* 20 MG PO SCH (09:23)
[2018-10-22] MEDS: Furosemide IV* 10 MG/ML VIAL (40 MG) IV SLOW PU SCH ×2 (09:23→17:43)
[2018-10-22] MEDS: Famotidine IV* 10 MG/ML 2 ML (20 mg) IV SCH (09:23)
[2018-10-22] MEDS: Enoxaparin(*) 60 MG/0.6 ML SYR SUBCUT SCH (09:24)
[2018-10-22] MEDS ORDERED: Albuterol 2.5 MG/3 ML NEB.SOL* (0.083%) INH SCH (10:00)
--- NOTE | 2018-10-22 10:08 | PN ---
Date of Service: 10/22/18 - [facility] note Critical Care Services: Pt seen and examined at bedside. Overnight events noted Pt admitted for scrotal swelling and pain on 10/20/18 Pt was intubated on 10/21/18 for hypercapnic resp failure after failing BiPAP Pt had hypoxia after intubation that eventually improved with vent changes Was able to taper FIO2 yesterday, became hypoxic this am and FIO2 increased to 100% Couldnot have abdomen/pelvis CT scan as he couldnot fit into scanner Vital Signs: Temp Pulse Resp BP SpO2 FiO2 99 F 97 16 115/76 84 100 10/22/18 07:18 10/22/18 08:01 10/22/18 05:48 10/22/18 08:01 10/22/18 08:01 10/22 04:00 Physical Exam: Gen: Pt in sedated HEENT: PERRLA, ETT+, OGT+ Lungs: Diminished at bases, wheeze+ on auscultation Cardiac: S1, S2+, regular Abdomen: Obese, BS+ Extremities: Normal ROM Neuro: Sedated, responds appropriately when sedation held Fluid Balance (Past 24 Hours): I= 2844 O= 5275 Net -2431 Intake & Output 10/20/18 10/21/18 10/22/18 10/23/18 06:59 06:59 06:59 06:59 Intake Total 1693 2844 Output Total 1000 4185 5275 650 Balance -1000 -2492 -2431 -650 Weight 700 lb 583 lb 5.49 oz 583 lb 5.49 oz Intake: IV Fluids 17 ns 17 Medicated IV 143 2827 CC - Propofol/Diprivan 143 2109 vanco 508 zosyn 210 Oral 1550 0 Output: Urine 1000 4185 Jimenez 5275 650 Other: Estimated Void Large # Voids 1 Labs: Laboratory Results - last 24 hr 10/21/18 10/21/18 10/21/18 14:29 19:55 19:55 WBC 10.1 RBC 5.97 H Hgb 15.0 Hct 49 MCV 82 MCH 25 L MCHC 31 RDW 18 H Plt Count 196 MPV 7.2 L Neut % (Auto) 78.5 Lymph % (Auto) 9.6 Throckmorton % (Auto) 8.0 Eos % (Auto) 3.3 Baso % (Auto) 0.6 Absolute Neuts (auto) 8.0 H Absolute Lymphs (auto) 1.0 Absolute Monos (auto) 0.8 Absolute Eos (auto) 0.3 Absolute Basos (auto) 0.1 Absolute Nucleated RBC 0 Nucleated RBC % 0.1 INR (Anticoag Therapy) Patient Temperature Not Reportable ABG pH 7.42 ABG pH (Temp Correct) Not Reportable ABG pCO2 67 H ABG pCO2 (Temp Corrct Not Reportable ABG pO2 93 ABG pO2 (Temp Correct Not Reportable ABG HCO3 37.0 H ABG O2 Saturation 97.7 ABG Base Excess 15.6 H Respiration Rate 14 O2 Delivery Device vent Ventilator Type Not Reportable Vent Mode pcv FiO2 80 Inspiratory Time 1.2 PEEP 10 Pressure Support Not Reportable Pressure Control 25 EPAP Not Reportable IPAP Not Reportable BiPAP Not Reportable Sodium 141 Potassium 4.3 Chloride 96 L Carbon Dioxide 41 H* Anion Gap 4 BUN 12 Creatinine 0.75 Est GFR ( Amer) 149.0 Est GFR (Non-Af Amer) 123.1 BUN/Creatinine Ratio 16.0 Glucose 95 Calcium 8.5 L Total Bilirubin AST ALT Alkaline Phosphatase Total Protein Albumin Globulin Albumin/Globulin Ratio 10/21/18 10/21/18 10/22/18 21:17 22:50 04:53 WBC 10.2 RBC 6.18 H Hgb 15.7 Hct 51 MCV 82 MCH 25 L MCHC 31 RDW 19 H Plt Count 177 MPV 6.9 L Neut % (Auto) 79.1 Lymph % (Auto) 8.7 Throckmorton % (Auto) 9.0 Eos % (Auto) 2.9 Baso % (Auto) 0.3 Absolute Neuts (auto) 8.0 H Absolute Lymphs (auto) 0.9 L Absolute Monos (auto) 0.9 H Absolute Eos (auto) 0.3 Absolute Basos (auto) 0 Absolute Nucleated RBC 0 Nucleated RBC % 0.1 INR (Anticoag Therapy) 1.20 H Patient Temperature Not Reportable ABG pH 7.35 ABG pH (Temp Correct) Not Reportable ABG pCO2 87 H* ABG pCO2 (Temp Corrct Not Reportable ABG pO2 80 ABG pO2 (Temp Correct Not Reportable ABG HCO3 38.6 H ABG O2 Saturation 96.3 ABG Base Excess 17.7 H Respiration Rate 14 O2 Delivery Device ventilator Ventilator Type Not Reportable Vent Mode pcv FiO2 70 Inspiratory Time 1.2 PEEP 8 Pressure Support Not Reportable Pressure Control 25 EPAP Not Reportable IPAP Not Reportable BiPAP Not Reportable Sodium Potassium Chloride Carbon Dioxide Anion Gap BUN Creatinine Est GFR ( Amer) Est GFR (Non-Af Amer) BUN/Creatinine Ratio Glucose Calcium Total Bilirubin AST ALT Alkaline Phosphatase Total Protein Albumin Globulin Albumin/Globulin Ratio 10/22/18 10/22/18 04:53 05:35 WBC RBC Hgb Hct MCV MCH MCHC RDW Plt Count MPV Neut % (Auto) Lymph % (Auto) Throckmorton % (Auto) Eos % (Auto) Baso % (Auto) Absolute Neuts (auto) Absolute Lymphs (auto) Absolute Monos (auto) Absolute Eos (auto) Absolute Basos (auto) Absolute Nucleated RBC Nucleated RBC % INR (Anticoag Therapy) Patient Temperature Not Reportable ABG pH 7.49 H ABG pH (Temp Correct) Not Reportable ABG pCO2 57 H ABG pCO2 (Temp Corrct Not Reportable ABG pO2 73 L ABG pO2 (Temp Correct Not Reportable ABG HCO3 38.1 H ABG O2 Saturation 95.7 ABG Base Excess 17.0 H Respiration Rate 16 O2 Delivery Device ventilator Ventilator Type Not Reportable Vent Mode pcv FiO2 100 Inspiratory Time 1.2 PEEP 12 Pressure Support Not Reportable Pressure Control 28 EPAP Not Reportable IPAP Not Reportable BiPAP Not Reportable Sodium 139 Potassium 3.9 Chloride 97 L Carbon Dioxide 38 H Anion Gap 4 BUN 12 Creatinine 0.65 L Est GFR ( Amer) 175.7 Est GFR (Non-Af Amer) 145.2 BUN/Creatinine Ratio 18.5 Glucose 108 H Calcium 8.6 Total Bilirubin 0.90 AST 71 H ALT 28 Alkaline Phosphatase 49 Total Protein 6.0 L Albumin 3.1 L Globulin 2.9 Albumin/Globulin Ratio 1.1 Studies: CXR 10/22/18: Was personally reviewed. No acute air space opacity, Mild volume loss on rt side. ETT in place. Nutrition: NPO, will start tube feeds Impression: 28 y o super morbidly obese male with h/o Severe MARIO possible OHS, recently being treated for Scrotal cellulitis a/w increased scrotal swelling and was transferred to ICU for acute hypoxic and hypercapnic resp failure 1. Acute hypoxic and acute on chronic hypercapnic resp failure s/p intubation 2. CHF with fluid overload 3. AMS 4. Scrotal cellulitis 5. Leucocytosis 6. Super morbid obesity 7. Urinary retention s/p suprapubic catheter placement Plan: 1. Neuro: Pt intubated for AMS from hypercapnia and [employer] narcosis. Pt sedated with Propofol. Will maintain RASS at 2-3. Sedation vacation. Fentanyl prn for pain. Keep head of bed elevated 2. Resp: Intubated for acute hypercapnic and hypoxic resp failure. Pt had hypoxia requiring high FiO2 and PEEP post intubation. Less likely to be PE as he is hemodynamically significant and given alternate explanation of MARIO/OHS and fluid overload. Cannot get CT scan as he would not fit into scanner. Will titrate FiO2 as tolerated. Will change to APRV. No evidence of auto PEEP at this time. Peak pressures are not elevated. Vent bundle ordered. c/w nebs prn given smoking history. CXR with suggestion of density in rt hilum, which appeared to be air space opacity. Could not obtain CT scan 3. CVS: Is hemodynamically stable. Received 80mg IV Lasix total. On Lovenox for DVT prophylaxis. Also ordered venodynes. Unable to get CTA at this time. Suspect diastolic dysfunction and Rt heart dysfunction. Will avoid fluid overload, will also avoid high PEEP if oxygenation permits. Will order ECHO, unsure if would be helpful to get good windows given his weight. No acute changes on EKG 4. ID: Scrotal cellulitis and significant swelling. Was on Bactrim as out pt. Changed to Zosyn, received 1 dose of Vanco. Lactate was normal on admission. Afebrile, leucocytosis resolved. 5. GI: NPO since admission. Will start feeds today. GI ppx 6. Genitourinary: Pt with significant scrotal and penile swelling, urology unable to pass Jimenez, noted to be retaining 1200 ml urine, s/p suprapubic catheter placement by IR 10/21/18 with good output. Creatinine is normal. No electrolyte abnormalities. Monitor I/O. Surgery consulted regarding significant scrotal swelling. For medical management as pt is not septic at this time. Could not obtain imaging studies to evaluate the perineum. 7. Musculoskeltal: Frequent positioning, monitoring for pressure ulcers. 8. Endo: Bl sugars better today, will monitor closely 9. Haem: Leucocytosis from cellulitis, resolved 10. Psychosocial: Pt is intubated. Will update mother when she arrives Full code IV access: PICC line 10/21/18 Suprapubic catheter 10/21/18 Critical Care Time: 50 min
[2018-10-22] MEDS ORDERED: methylPREDNISolone SOD 40 MG* 1 ML VIAL IV SCH (11:00)
--- NOTE | 2018-10-22 13:06 | CONS ---
CONSULTATION REPORT: DATE OF CONSULT: 10/22/18 HISTORY OF PRESENT ILLNESS: Mr. Ackerman is a 28-year-old male super morbidly obese who has had increasing edema of the lower abdomen and scrotum. He was recently prescribed Bactrim. He has had increasing pain and discomfort in that region and was thus admitted and has subsequently had hypercapnic respiratory failure and had been placed on the ventilator. Dr. Plascencia had asked me to evaluate him for the scrotal edema to see if I think there is any infectious etiology. He is currently on the ventilator so I am unable to get any history. PHYSICAL EXAM: On examination, he is super morbidly obese. The abdomen is large. There is some dependent edema in the lower portion. The scrotal is markedly edematous and no evidence of cellulitis. He is sedated on the vent, so I cannot assess for tenderness. There is nothing that appears to be an obvious abscess or collection. I am able to reach under and palpate the perineal area and that feels normal, does not feel edematous or indurated. There are no abrasions or lacerations or open wounds on the scrotum. He currently has a suprapubic catheter in place. DIAGNOSTIC STUDIES/LAB DATA: Laboratory studies show normal white blood count with normal differential. He is afebrile and has no evidence of lactic acidosis. IMPRESSION: He is super morbidly obese with scrotal edema. I cannot say if this is just dependent edema or if he has venous compromise; however, I do not see anything that clinically appears to be consistent with a soft tissue infection, nor anything that is suggestive of fasciitis. I have discussed this with Dr. Plascencia, and optimally, CT scan of the area would be carried out to assess for fasciitis; however, she informs me that they were unable to do the CT scan due to his size, he cannot fit in the scanner. So, at this point, I think we are having to manage him clinically and there is no clinical sign of a septic focus anywhere in the scrotal or perineal region. Unless alternate means of a CT scan is feasible, I think we will have to continue based on clinical exam. [id number]/[facility] #: [id number] [facility] HOSPITALFabi
[2018-10-22] MEDS ORDERED: Heparin DRIP 25,000 UNITS(*) 25,000 UNITS/500 ML BAG IV SCH (15:30)
[2018-10-22] MEDS ORDERED: Rocuronium* 10 MG/ML VIAL IV ONE (15:32)
[2018-10-22] MEDS: Albuterol/Ipratropium NEB.SOL* Albuterol 2.5 MG/Ipratropium 0.5 MG 3 ML INH SCH ×3 (15:40→18:23)
[2018-10-22] MEDS ORDERED: Levalbuterol 1.25MG/0.5ML NEB ONE (15:53)
[2018-10-22 16:21] LABS: ABS Basophils 0 10^3/ul (0-0.2); ABS Eosinophils 0.1 10^3/ul (0-0.6); ABS Lymphocytes 0.4 10^3/ul (1.0-4.8); ABS Monocytes 0.6 10^3/ul (0-0.8); ABS Neutrophils 10.8 10^3/ul (1.5-7.7); ABS Nucleated RBC 0 10^3/ul; Eosinophil % 0.5 %; Hematocrit 53 % (42-52); Hemoglobin 16.2 g/dl (14.0-18.0); Lymphocyte % 3.3 %; Mean Corpuscular HGB Conc 31 g/dl (31-36); Mean Corpuscular Hemoglobin 25 pg (27-31); Mean Corpuscular Volume 82 fL (80-94); Mean Platelet Volume 7.5 fL (7.4-10.4); Nucleated Red Blood Cells % 0; Platelet Count 216 10^3/ul (150-450); Red Blood Count 6.49 10^6/ul (4.00-5.40); Red Cell Distribution Width 19 % (10.5-15); White Blood Count 11.9 10^3/ul (3.5-10.8)
[2018-10-22] MEDS ORDERED: Heparin VIAL(*) 5000 UNITS/ML VIAL (FIVE THOUSAND) IV SCH (17:00)
--- NOTE | 2018-10-22 18:59 | PN ---
Progress Note - Progress Note Date of Service: 10/22/18 - Transfer summary Note: Date of admission to [facility]: 10/20/18 Reason for admission: SOB, scrotal swelling and pain Date of ICU transfer:10/21/18 Reason for ICU transfer: Respiratory failure Patient with worsening hypoxic respiratory failure and to be [facility] when bed available for advanced ventilator management Transfer note: 28 y o super morbidly obese male with h/o severe MARIO dx in 2011, CPAP of 12 was prescribed, patient has not been compliant, nephrolithiasis. Patient has been having issues with cellulitis of lower extremities and scrotum , for which he is being treated with Bactrim. Swelling has been worsening and has been painful. He also gained more weight and developed SOB and decided to come to ED for evaluation. Patient was found to have hypercapnia, respiratory acidosis and hypoxia. he was intiiated on O2 supplementation, BiPAP was ordered. Patient didnot want to use BiPAP. He was noted to be hypoxic, ABG showed worsened hypercapnia and was transferred to ICU with BiPAP. Patient continued to worsen and required intubation and he was intubated at 5 am on . Patient continued to have worsening hypoxia inspite of being on maximal ventilator settings. Multiple ventilator settings have been attempted throughout the day including volume control, APRV, pressure control. Pt is currently on PCV with PS of 28, PEEP of 12, FiO2 100%, plateau pressures are acceptable. Last ABG at 5:35 pm showed pH 7.49, pCO2 of 57, pO2 of 73, Bicarb of 38 with P/F ratio of 73. Cause for hypoxic respiratory failure unclear, PE in differential though large PE is less likely given that patient is hemodynamically stable. Severe sepsis with circulatory shock also less likely given that patient is hemodynamically stable. Other significant issues during hospitalization were inability to pass Jimenez catheter and suprapubic catheter placement was performed by IR on 10/21/18 with good UO. Patient had triple lumen PICC placed on 10/21/18. CT of chest, abdomen and pelvis was ordered however not able to obtain as patient couldnot fit into CT scanner due to his weight. Patient was started on Heparin drip for possible PE which couldnot be confirmed as patient didnot fit into CT scanner. Echocardiogram showed EF 55-65% with dialted left atrium and mildly thickened Rt ventricle. EKG didnot reveal any acute changes. Labs showed mild leucocytosis on admission that improved on rpt labs today. Renal function was normal and electrolytes were within normal limits. Surgery was consulted to evaluate for Fourneirs gangrene though clinically it was not consistent with that picture. He is being treated with Zosyn for cellulitis. Patient`s family was updated at bedside multiple times through out the day. patients mother Delmi was HCP. I have contacted [facility] and [facility] as they were closest facilities, beds not avaialble. Patient was accepted to [facility] in [place] by Dr Serrano(spoke to Ben PIPER). Patient could not be air-lifted given his weight. He is to be transported by Ambulance as soon as this could be arranged through transfer center. This is brief summary of this visit. Please refer to admission H&P, daily progress notes, labs, flow sheet for further details. Patients mother was contacted over phone @[phone] on 10/22/18 at around 6:20 pm and was updated regarding transfer to which she is agreeable and provided verbal consent.
[2018-10-22 19:30] VITALS: BP 110/61
== END 2018-10-22 19:55 | disposition short-term general hospital (02) | DRG 133 ==
LOC: ED 03:05 → SSU 05:40 → ICU 10-21 00:17
PROVIDERS: ADMIT Internal Medicine; ATTEND Internal Medicine
PROC: 02HV33Z Insertion of Infusion Device into Superior Vena Cava, Percutaneous Approach (ICD-10-PCS; principal; 2018-10-20)
PROC: 5A09357 Assistance with Respiratory Ventilation, Less than 24 Consecutive Hours, Continuous Positive Airway Pressure (ICD-10-PCS; 2018-10-20)
PROC: 5A1945Z Respiratory Ventilation, 24-96 Consecutive Hours (ICD-10-PCS; 2018-10-21)
PROC: 0BH17EZ Insertion of Endotracheal Airway into Trachea, Via Natural or Artificial Opening (ICD-10-PCS; 2018-10-21)
PROC: 0J9C30Z Drainage of Pelvic Region Subcutaneous Tissue and Fascia with Drainage Device, Percutaneous Approach (ICD-10-PCS; 2018-10-21)
DX: J96.22 Acute and chronic respiratory failure with hypercapnia (principal); E87.2 Acidosis; Z68.45 Body mass index [BMI] 70 or greater, adult; J96.21 Acute and chronic respiratory failure with hypoxia; N49.2 Inflammatory disorders of scrotum; F32.9 Major depressive disorder, single episode, unspecified; F17.210 Nicotine dependence, cigarettes, uncomplicated; I50.9 Heart failure, unspecified; N48.89 Other specified disorders of penis; E66.01 Morbid (severe) obesity due to excess calories; G47.33 Obstructive sleep apnea (adult) (pediatric); R41.82 Altered mental status, unspecified; R33.9 Retention of urine, unspecified; Z87.442 Personal history of urinary calculi; Z99.81 Dependence on supplemental oxygen; Z83.49 Family history of other endocrine, nutritional and metabolic diseases; Z91.19 Patient's noncompliance with other medical treatment and regimen; Z91.11 Patient's noncompliance with dietary regimen
CPT/HCPCS: 36415; 36600; 51101; 51102; 71045; 76857; 76942; 77002; 80048; 80053; 80202; 82565; 82803; 83605; 83735; 83880; 84484; 84520; 85025; 85610; 85730; 86140; 93005; 93306; 94002; 94003; 94640; 94660; 99283; A9270-GY; C1751; C8929; J0330; J1644; J1650; J1940; J2060; J2250; J2270; J2543; J2704; J2920; J2930; J3010; J3370